=== PATIENT | male | born 1930 | race Hispanic/Latino ===

== ENCOUNTER 2018-02-08 23:26 | Inpatient (IN) | payer OTHER ==
[~2018-02-08] VITALS: Ht 167.6 cm; Wt 81.7 kg
[2018-02-09 00:04] LABS: BASOPHILS % (AUTO) 0.3 % (0.0-5.0); EOSINOPHILS % (AUTO) 0.8 % (0.0-8.0); HEMATOCRIT 43.3 % (42-54); LYMPHOCYTES % (AUTO) 4.9 % (21.0-51.0); MEAN CORPUSCULAR HEMOGLOBIN 32.9 pg (27.0-33.0); MEAN CORPUSCULAR HGB CONC 34.4 g/dL (32.0-36.0); MEAN CORPUSCULAR VOLUME 95.7 fL (79-99); MONOCYTES % (AUTO) 4.1 % (3.0-13.0); NEUTROPHILS % (AUTO) 89.9 % (40.0-77.0); PLATELET COUNT (AUTO) 76 K/uL (130-400); RED BLOOD CELL COUNT(AUTO) 4.53 MIL/uL (4.50-6.20); RED CELL DISTRIBUTION WIDTH 14.4 % (11.0-15.5); WHITE BLOOD COUNT (AUTO) 15.6 K/uL (4.8-10.8)
[2018-02-09 00:05] LABS: APPEARANCE,URINE Clear (CLEAR); BILIRUBIN,URINE Negative (NEGATIVE); COLOR,URINE Dark Yellow (YELLOW); GLUCOSE, URINE (UA) Negative (NEGATIVE); KETONES,URINE Negative (NEGATIVE); LEUKOCYTE ESTERASE ,URINE Negative (NEGATIVE); NITRATE,URINE Negative (NEGATIVE); OCCULT BLOOD,URINE Negative (NEGATIVE); PROTEIN,URINE POS 1+ (NEGATIVE)
[2018-02-09] MEDS ORDERED: ONDANSETRON HCL 4 MG/2 ML VIAL ONE (00:07)
[2018-02-09] MEDS ORDERED: SODIUM CHLORIDE 0.9% 1000ML 1,000 ML IV ONE (00:07)
[2018-02-09] MEDS ORDERED: KETOROLAC TROMETHAMINE 30MG/ML ONE (00:08)
[2018-02-09 00:15] LABS: CREATININE 1.4 mg/dL (0.5-1.5); POTASSIUM 3.3 mmol/L (3.5-5.1)
[2018-02-09 00:19] LABS: ALBUMIN 2.8 g/dL (3.5-5.0); BILIRUBIN,TOTAL 1.1 mg/dL (0.2-1.0); TOTAL PROTEIN, SERUM 6.9 g/dL (6.0-8.3)
[2018-02-09] MEDS ORDERED: ZOSYN 3.375GM+NS 50ML 50 ML IV ONE (00:40)
[2018-02-09] MEDS ORDERED: SODIUM CHLORIDE 0.9% 100 ML IV ONE (00:41)
[2018-02-09 03:00] VITALS: BP 125/65
[2018-02-09] MEDS ORDERED: PHARMACY COMMUNICATION MISC SCH (03:45)
[2018-02-09] MEDS: SODIUM CHLORIDE 0.9% 1000ML 1,000 ML IV SCH ×2 (03:50→12:39)
[2018-02-09] MEDS: LIDOCAINE HCL-MPF 1% 2ML VIAL IVP PRN ×2 (04:02→08:52)
[2018-02-09] MEDS: POTASSIUM CHLORIDE 20MEQ/100ML 100 ML IV PRN ×2 (04:02→08:49)
[2018-02-09] MEDS: ZOSYN 3.375GM+NS 50ML 50 ML IV SCH ×3 (05:03→21:00)
[2018-02-09] MEDS ORDERED: PNEUMOCOCCAL VACCINE POLYVALENT 0.5 ML/VIAL [PPV] IM ONE (07:15)
[2018-02-09] MEDS ORDERED: PNEUMOCOCCAL VACCINE POLYVALENT 0.5 ML/VIAL [PPV] IM SCH (07:15)
[2018-02-09 08:00] VITALS: BP 133/65
[2018-02-09] MEDS: NEOMY SULF/BACITRAC ZN/POLY OINT 30GM TUBE TP SCH ×2 (08:45→21:00)
[2018-02-09] MEDS: FAMOTIDINE/PF 20 MG/2 ML VIAL IV SCH ×2 (08:45→21:00)
[2018-02-09] MEDS ORDERED: ENOXAPARIN SODIUM 30 MG/0.3 ML SQ SCH (09:00)
[2018-02-09 12:00] VITALS: BP 121/59
[2018-02-09 12:41] LABS: INR 1.04 (0.85-1.15); PARTIAL THROMBOPLASTIN TIME 39.9 SEC (26.3-35.5); PROTHROMBIN TIME 10.9 SEC (9.6-11.6)
[2018-02-09 13:29] LABS: ALBUMIN 2.2 g/dL (3.5-5.0); BILIRUBIN,TOTAL 0.9 mg/dL (0.2-1.0); POTASSIUM 3.9 mmol/L (3.5-5.1); TOTAL PROTEIN, SERUM 4.7 g/dL (6.0-8.3)
[2018-02-09 16:00] VITALS: BP 143/71
[2018-02-09 20:20] VITALS: BP 138/70
[2018-02-09 23:57] VITALS: BP 103/60
[2018-02-10] MEDS: SODIUM CHLORIDE 0.9% 1000ML 1,000 ML IV SCH ×3 (03:04→18:26)
[2018-02-10 03:53] VITALS: BP 147/79
[2018-02-10] MEDS: ZOSYN 3.375GM+NS 50ML 50 ML IV SCH ×3 (05:02→20:33)
[2018-02-10 05:15] LABS: HEMATOCRIT 36.2 % (42-54); MEAN CORPUSCULAR HGB CONC 34.4 g/dL (32.0-36.0); MEAN CORPUSCULAR VOLUME 95.9 fL (79-99); PLATELET COUNT (AUTO) 59 K/uL (130-400); RED BLOOD CELL COUNT(AUTO) 3.78 MIL/uL (4.50-6.20); RED CELL DISTRIBUTION WIDTH 14.1 % (11.0-15.5)
[2018-02-10 08:00] VITALS: BP 133/72
[2018-02-10 08:13] LABS: BASOPHILS % (AUTO) 0.4 % (0.0-5.0); EOSINOPHILS % (AUTO) 0.7 % (0.0-8.0); HEMATOCRIT 40.2 % (42-54); MEAN CORPUSCULAR HEMOGLOBIN 32.7 pg (27.0-33.0); MEAN CORPUSCULAR HGB CONC 34.2 g/dL (32.0-36.0); MEAN CORPUSCULAR VOLUME 95.5 fL (79-99); MONOCYTES % (AUTO) 5.9 % (3.0-13.0); PLATELET COUNT (AUTO) 61 K/uL (130-400); RED BLOOD CELL COUNT(AUTO) 4.21 MIL/uL (4.50-6.20); RED CELL DISTRIBUTION WIDTH 14.2 % (11.0-15.5); WHITE BLOOD COUNT (AUTO) 9.9 K/uL (4.8-10.8)
[2018-02-10] MEDS: FAMOTIDINE/PF 20 MG/2 ML VIAL IV SCH ×2 (08:18→20:33)
[2018-02-10] MEDS: NEOMY SULF/BACITRAC ZN/POLY OINT 30GM TUBE TP SCH ×2 (08:18→20:34)
[2018-02-10] MEDS ORDERED: MAGNESIUM CITRATE 296 ML SOLUTION PO SCH (11:45)
[2018-02-10 12:00] VITALS: BP 136/79
[2018-02-10 16:00] VITALS: BP 134/65
[2018-02-10] MEDS ORDERED: DiphenhydrAMINE HCL 50 MG/ML VIAL IV SCH (18:45)
[2018-02-10] MEDS ORDERED: METHYLPREDNISOLONE SOD SUCC 125MG/2ML VIAL IVP SCH (18:45)
[2018-02-10] MEDS ORDERED: ACETAMINOPHEN EXTRA STRENGTH 500 MG TABLET PO SCH (18:45)
[2018-02-10] MEDS ORDERED: DiphenhydrAMINE HCL 50 MG/ML VIAL ONE (18:46)
[2018-02-10] MEDS ORDERED: METHYLPREDNISOLONE SOD SUCC 125MG/2ML VIAL ONE (18:46)
[2018-02-10 19:00] VITALS: BP 159/87
[2018-02-10] MEDS ORDERED: FUROSEMIDE 10 MG/ML 4ML VIAL IV SCH ×2 (19:00→19:15)
[2018-02-10] MEDS ORDERED: FUROSEMIDE 10 MG/ML 4ML VIAL ONE (19:08)
[2018-02-10 19:09] LABS: ABG BASE EXCESS -3.2 mmol/L (-2.0-3.0); ABG HCO3 21.2 mmol/L (21.0-28.0); ABG OXYGEN SATURATION 98.7 % (95.0-99.0); ABG PCO2 36 mmHg (35-48)
[2018-02-10 19:40] LABS: EOSINOPHILS % (AUTO) 0.7 % (0.0-8.0); LYMPHOCYTES % (AUTO) 4.2 % (21.0-51.0); MEAN CORPUSCULAR HEMOGLOBIN 33.2 pg (27.0-33.0); MEAN CORPUSCULAR HGB CONC 34.8 g/dL (32.0-36.0); MEAN CORPUSCULAR VOLUME 95.4 fL (79-99); MONOCYTES % (AUTO) 1.4 % (3.0-13.0); NEUTROPHILS % (AUTO) 93.7 % (40.0-77.0); NUCLEATED RED BLOOD CELLS 0.1 % (0.0-0.19); PLATELET COUNT (AUTO) 118 K/uL (130-400); RED BLOOD CELL COUNT(AUTO) 4.51 MIL/uL (4.50-6.20); RED CELL DISTRIBUTION WIDTH 14.2 % (11.0-15.5); WHITE BLOOD COUNT (AUTO) 5.1 K/uL (4.8-10.8)
[2018-02-10 20:01] LABS: CREATININE 1.1 mg/dL (0.5-1.5); PARTIAL THROMBOPLASTIN TIME 29.5 SEC (26.3-35.5); POTASSIUM 3.4 mmol/L (3.5-5.1); PROTHROMBIN TIME 10.5 SEC (9.6-11.6)
[2018-02-10] MEDS ORDERED: VANCOMYCIN PROTOCOL PER PHARMACY IV SCH (21:15)
[2018-02-10 23:45] VITALS: BP 108/56
[2018-02-11] VITALS (13 sets, daily range): BP systolic 106–134; BP diastolic 54–76
[2018-02-11] MEDS ORDERED: VANCOMYCIN 1.5 GM in SODIUM CHLORIDE 0.9% 250 ML IV SCH ×2
[2018-02-11] MEDS ORDERED: VANCOMYCIN 1GM+NS 250ML 500 ML IV ONE (01:25)
[2018-02-11] MEDS: SODIUM CHLORIDE 0.9% 1000ML 1,000 ML IV SCH ×3 (04:24→21:49)
[2018-02-11 04:29] LABS: APPEARANCE,URINE CLEAR (CLEAR); BILIRUBIN,URINE NEGATIVE (NEGATIVE); COLOR,URINE YELLOW (YELLOW); GLUCOSE, URINE (UA) NEGATIVE (NEGATIVE); KETONES,URINE NEGATIVE (NEGATIVE); LEUKOCYTE ESTERASE ,URINE NEGATIVE (NEGATIVE); NITRATE,URINE NEGATIVE (NEGATIVE); OCCULT BLOOD,URINE TRACE-INTACT (NEGATIVE); PROTEIN,URINE NEGATIVE (NEGATIVE); UROBILINOGEN,URINE 0.2 mg/dL (0.2-1.0)
[2018-02-11 04:37] LABS: BACTERIA,URINE None Seen /HPF (None Seen); WBC,URINE 0-1 /HPF (0-1)
[2018-02-11] MEDS: ZOSYN 3.375GM+NS 50ML 50 ML IV SCH ×3 (05:33→23:34)
[2018-02-11 05:40] LABS: BASOPHILS % (AUTO) 0.1 % (0.0-5.0); MEAN CORPUSCULAR HEMOGLOBIN 32.5 pg (27.0-33.0); MEAN CORPUSCULAR HGB CONC 34.2 g/dL (32.0-36.0); MEAN CORPUSCULAR VOLUME 95.1 fL (79-99); MONOCYTES % (AUTO) 2.3 % (3.0-13.0); NEUTROPHILS % (AUTO) 91.6 % (40.0-77.0); PLATELET COUNT (AUTO) 87 K/uL (130-400); RED CELL DISTRIBUTION WIDTH 14.3 % (11.0-15.5); WHITE BLOOD COUNT (AUTO) 10.2 K/uL (4.8-10.8)
[2018-02-11 05:42] LABS: CREATININE 1.1 mg/dL (0.5-1.5); POTASSIUM 3.4 mmol/L (3.5-5.1)
[2018-02-11] MEDS: NEOMY SULF/BACITRAC ZN/POLY OINT 30GM TUBE TP SCH ×2 (09:00→23:44)
[2018-02-11] MEDS: FAMOTIDINE/PF 20 MG/2 ML VIAL IV SCH ×2 (09:11→21:50)
[2018-02-11] MEDS ORDERED: FENTANYL CITRATE PF 50 MCG/1 ML 2ML VIAL ONE (15:15)
[2018-02-11] MEDS ORDERED: MIDAZOLAM HCL 1 MG/ML 2ML VIAL ONE (15:15)
[2018-02-11] MEDS: IPRATROPIUM 0.5 MG/2.5 ML INH IH SCH ×2 (18:08→23:11)
[2018-02-11] MEDS: FUROSEMIDE 10 MG/ML 2ML VIAL IV SCH (18:25)
[2018-02-11] MEDS: POTASSIUM CHLORIDE 20MEQ/100ML 100 ML IV PRN (18:27)
[2018-02-11] MEDS: LIDOCAINE HCL-MPF 1% 2ML VIAL IVP PRN (18:27)
[2018-02-11] MEDS: VANCOMYCIN 1GM+NS 250ML 250 ML IV SCH (21:51)
[2018-02-12 03:00] VITALS: BP 148/68
[2018-02-12 03:48] LABS: ABG BASE EXCESS 2.6 mmol/L (-2.0-3.0); ABG OXYGEN SATURATION 97.8 % (95.0-99.0); ABG PCO2 41 mmHg (35-48)
[2018-02-12 04:31] LABS: BASOPHILS % (AUTO) 0.2 % (0.0-5.0); EOSINOPHILS % (AUTO) 0.7 % (0.0-8.0); HEMATOCRIT 35.1 % (42-54); LYMPHOCYTES % (AUTO) 11.6 % (21.0-51.0); MEAN CORPUSCULAR HGB CONC 35.1 g/dL (32.0-36.0); MEAN CORPUSCULAR VOLUME 93.9 fL (79-99); MONOCYTES % (AUTO) 8.7 % (3.0-13.0); NEUTROPHILS % (AUTO) 78.8 % (40.0-77.0); NUCLEATED RED BLOOD CELLS 0.1 % (0.0-0.19); PLATELET COUNT (AUTO) 104 K/uL (130-400); RED BLOOD CELL COUNT(AUTO) 3.74 MIL/uL (4.50-6.20); RED CELL DISTRIBUTION WIDTH 14.3 % (11.0-15.5); WHITE BLOOD COUNT (AUTO) 7.9 K/uL (4.8-10.8)
[2018-02-12 04:47] LABS: INR 1.09 (0.85-1.15); PARTIAL THROMBOPLASTIN TIME 29.6 SEC (26.3-35.5); PROTHROMBIN TIME 11.4 SEC (9.6-11.6)
[2018-02-12 05:01] LABS: ALBUMIN 1.9 g/dL (3.5-5.0); BILIRUBIN,TOTAL 1.2 mg/dL (0.2-1.0); MAGNESIUM 1.8 mg/dL (1.80-2.40); PHOSPHORUS 2.8 mg/dL (2.5-4.9); POTASSIUM 3.4 mmol/L (3.5-5.1); TOTAL PROTEIN, SERUM 5.1 g/dL (6.0-8.3)
[2018-02-12] MEDS: ZOSYN 3.375GM+NS 50ML 50 ML IV SCH ×3 (05:05→21:24)
[2018-02-12] MEDS: FUROSEMIDE 10 MG/ML 2ML VIAL IV SCH ×2 (05:05→14:09)
[2018-02-12] MEDS: IPRATROPIUM 0.5 MG/2.5 ML INH IH SCH ×4 (06:12→23:08)
[2018-02-12] MEDS: MAGNESIUM 2GM PREMIX 50ML 50 ML IV PRN (06:36)
[2018-02-12 07:00] VITALS: BP 131/69
[2018-02-12] MEDS: FOLIC ACID 1 MG TABLET PO SCH (09:56)
[2018-02-12] MEDS: CYANOCOBALAMIN (VITAMIN B-12) 1,000 MCG TABLET PO SCH (09:56)
[2018-02-12] MEDS: NEOMY SULF/BACITRAC ZN/POLY OINT 30GM TUBE TP SCH ×2 (09:56→21:56)
[2018-02-12] MEDS: FAMOTIDINE/PF 20 MG/2 ML VIAL IV SCH ×2 (09:56→21:24)
[2018-02-12] MEDS: SODIUM CHLORIDE 0.9% 1000ML 1,000 ML IV SCH (09:57)
[2018-02-12 11:06] VITALS: BP 131/62
[2018-02-12] MEDS ORDERED: MAGNESIUM 2GM PREMIX 50ML 50 ML IV SCH (13:30)
[2018-02-12 15:50] VITALS: BP 126/60
[2018-02-12] MEDS: POTASSIUM CHLORIDE 20MEQ/100ML 100 ML IV PRN (17:02)
[2018-02-12] MEDS: LIDOCAINE HCL-MPF 1% 2ML VIAL IVP PRN (17:02)
[2018-02-12] MEDS ORDERED: MAGNESIUM CITRATE 296 ML SOLUTION PO SCH (18:00)
[2018-02-12 19:23] VITALS: BP 133/71
[2018-02-12] MEDS: VANCOMYCIN 1GM+NS 250ML 250 ML IV SCH (21:24)
[2018-02-13] VITALS (29 sets, daily range): BP systolic 76–137; BP diastolic 22–83
[2018-02-13] MEDS: SODIUM CHLORIDE 0.9% 1000ML 1,000 ML IV SCH ×2 (04:21→06:24)
[2018-02-13 04:30] LABS: BASOPHILS % (AUTO) 0.6 % (0.0-5.0); HEMATOCRIT 40.5 % (42-54); LYMPHOCYTES % (AUTO) 12.5 % (21.0-51.0); MEAN CORPUSCULAR HEMOGLOBIN 31.9 pg (27.0-33.0); MEAN CORPUSCULAR VOLUME 93.8 fL (79-99); MONOCYTES % (AUTO) 6.1 % (3.0-13.0); NEUTROPHILS % (AUTO) 79.8 % (40.0-77.0); PLATELET COUNT (AUTO) 97 K/uL (130-400); RED BLOOD CELL COUNT(AUTO) 4.32 MIL/uL (4.50-6.20); RED CELL DISTRIBUTION WIDTH 14.2 % (11.0-15.5); WHITE BLOOD COUNT (AUTO) 6.9 K/uL (4.8-10.8)
[2018-02-13 04:39] LABS: INR 1.11 (0.85-1.15); PARTIAL THROMBOPLASTIN TIME 31.6 SEC (26.3-35.5); PROTHROMBIN TIME 11.6 SEC (9.6-11.6)
[2018-02-13] MEDS ORDERED: SODIUM CHLORIDE 0.9% 50 ML IV ONE (04:39)
[2018-02-13 04:42] LABS: BILIRUBIN,TOTAL 1.7 mg/dL (0.2-1.0); CREATININE 0.8 mg/dL (0.5-1.5); MAGNESIUM 1.9 mg/dL (1.80-2.40); PHOSPHORUS 2.9 mg/dL (2.5-4.9); POTASSIUM 3.1 mmol/L (3.5-5.1); TOTAL PROTEIN, SERUM 5.6 g/dL (6.0-8.3)
[2018-02-13] MEDS: ZOSYN 3.375GM+NS 50ML 50 ML IV SCH ×3 (05:06→23:24)
[2018-02-13] MEDS: FUROSEMIDE 10 MG/ML 2ML VIAL IV SCH ×2 (05:08→21:22)
[2018-02-13] MEDS: IPRATROPIUM 0.5 MG/2.5 ML INH IH SCH ×3 (06:22→23:23)
[2018-02-13] MEDS: FOLIC ACID 1 MG TABLET PO SCH (09:00)
[2018-02-13] MEDS: NEOMY SULF/BACITRAC ZN/POLY OINT 30GM TUBE TP SCH ×2 (09:00→22:17)
[2018-02-13] MEDS: CYANOCOBALAMIN (VITAMIN B-12) 1,000 MCG TABLET PO SCH (09:00)
[2018-02-13] MEDS: FAMOTIDINE/PF 20 MG/2 ML VIAL IV SCH ×2 (09:00→21:18)
[2018-02-13] MEDS ORDERED: LACTATED RINGERS 1000ML 1,000 ML IV ONE (09:34)
[2018-02-13] MEDS ORDERED: BUPIVACAINE/PF 0.25% 30ML VIAL IJ ONE (09:44)
[2018-02-13] MEDS ORDERED: LIDOCAINE HCL 1% 20 ML VIAL ONE (09:45)
[2018-02-13] MEDS ORDERED: POTASSIUM CHLORIDE 20MEQ/100ML 100 ML IV ONE ×2 (09:49→10:57)
[2018-02-13] MEDS: POTASSIUM CHLORIDE 20MEQ/100ML 100 ML IV PRN (09:58)
[2018-02-13] MEDS ORDERED: LIDOCAINE PF 2% 5ML ABBOJECT ONE (09:59)
[2018-02-13] MEDS ORDERED: SUCCINYLCHOLINE 200MG/10ML SYR ONE (09:59)
[2018-02-13] MEDS ORDERED: ONDANSETRON HCL 4 MG/2 ML VIAL ONE ×2 (09:59→11:25)
[2018-02-13] MEDS ORDERED: ROCURONIUM 10MG/1ML SYR 10 MG/ML ML ONE (10:00)
[2018-02-13] MEDS ORDERED: FENTANYL CITRATE PF 50 MCG/1 ML 2ML VIAL ONE ×2 (10:00→12:18)
[2018-02-13] MEDS ORDERED: PROPOFOL 10 MG/ML 20ML VIAL IV ONE (10:00)
[2018-02-13] MEDS ORDERED: ESMOLOL HCL 10 MG/ML 10 ML VIAL ONE (10:32)
[2018-02-13] MEDS ORDERED: BACITRACIN 50,000 UNIT VIAL ONE (10:45)
[2018-02-13] MEDS ORDERED: GLYCOPYRROLATE 1 MG/5 ML SYRINGE ONE (11:25)
[2018-02-13] MEDS ORDERED: NEOSTIGMINE 5MG/5ML SYR IV ONE (11:25)
[2018-02-13] MEDS ORDERED: DEXAMETHASONE SOD PHOSPHATE 10MG/ML 1ML VIAL ONE (11:25)
[2018-02-13] MEDS ORDERED: PHENYLEPHRINE HCL 10 MG/ML 1ML VIAL IV ONE ×3 (11:38→14:48)
[2018-02-13] MEDS: LIDOCAINE HCL-MPF 1% 2ML VIAL IVP PRN (11:54)
[2018-02-13 12:55] LABS: HEMATOCRIT 32.3 % (42-54); MEAN CORPUSCULAR HGB CONC 33.7 g/dL (32.0-36.0); MEAN CORPUSCULAR VOLUME 94.7 fL (79-99); PLATELET COUNT (AUTO) 128 K/uL (130-400); RED BLOOD CELL COUNT(AUTO) 3.41 MIL/uL (4.50-6.20); WHITE BLOOD COUNT (AUTO) 18.2 K/uL (4.8-10.8)
[2018-02-13] MEDS ORDERED: MEPERIDINE-PF 25 MG/ML SYG ONE ×2 (12:56→13:43)
[2018-02-13] MEDS: ONDANSETRON HCL 4 MG/2 ML VIAL IV PRN ×2 (13:46→23:24)
[2018-02-13] MEDS ORDERED: PROMETHAZINE HCL 25 MG/ML 1ML AMPULE IM ONE (13:48)
[2018-02-13 14:15] LABS: BASOPHILS % (AUTO) 0.2 % (0.0-5.0); EOSINOPHILS % (AUTO) 0.3 % (0.0-8.0); LYMPHOCYTES % (AUTO) 6.9 % (21.0-51.0); MEAN CORPUSCULAR HEMOGLOBIN 31.8 pg (27.0-33.0); MEAN CORPUSCULAR HGB CONC 33.4 g/dL (32.0-36.0); MEAN CORPUSCULAR VOLUME 95.2 fL (79-99); MONOCYTES % (AUTO) 3.9 % (3.0-13.0); NEUTROPHILS % (AUTO) 88.7 % (40.0-77.0); PLATELET COUNT (AUTO) 110 K/uL (130-400); RED BLOOD CELL COUNT(AUTO) 2.63 MIL/uL (4.50-6.20); WHITE BLOOD COUNT (AUTO) 15.8 K/uL (4.8-10.8)
[2018-02-13] MEDS ORDERED: AMINOCAPROIC ACID 250 MG/ML 20 ML VIAL IV ONE (14:31)
[2018-02-13] MEDS ORDERED: FUROSEMIDE 10 MG/ML 4ML VIAL ONE (15:15)
[2018-02-13] MEDS: MORPHINE SULFATE 2 MG/ML 1ML SYG IVP PRN ×3 (16:57→23:26)
[2018-02-13] MEDS: LACTATED RINGERS 1000ML 1,000 ML IV SCH (17:00)
[2018-02-13] MEDS ORDERED: ONDANSETRON HCL MDV 20ML 2 MG/ML VIAL ONE (17:18)
[2018-02-13] MEDS ORDERED: MAGNESIUM CITRATE 296 ML SOLUTION PO SCH (17:45)
[2018-02-13 20:19] LABS: HEMATOCRIT 38.7 % (42-54)
[2018-02-13] MEDS: VANCOMYCIN 1GM+NS 250ML 250 ML IV SCH (21:18)
[2018-02-14] VITALS (11 sets, daily range): BP systolic 107–146; BP diastolic 46–87
[2018-02-14] MEDS: LACTATED RINGERS 1000ML 1,000 ML IV SCH ×3 (00:45→22:31)
[2018-02-14 05:03] LABS: BASOPHILS % (AUTO) 0.2 % (0.0-5.0); HEMATOCRIT 35.1 % (42-54); LYMPHOCYTES % (AUTO) 5.9 % (21.0-51.0); MEAN CORPUSCULAR HEMOGLOBIN 31.9 pg (27.0-33.0); MEAN CORPUSCULAR HGB CONC 34.7 g/dL (32.0-36.0); MEAN CORPUSCULAR VOLUME 91.9 fL (79-99); MONOCYTES % (AUTO) 4.7 % (3.0-13.0); NEUTROPHILS % (AUTO) 89.2 % (40.0-77.0); PLATELET COUNT (AUTO) 131 K/uL (130-400); RED BLOOD CELL COUNT(AUTO) 3.82 MIL/uL (4.50-6.20); RED CELL DISTRIBUTION WIDTH 15.9 % (11.0-15.5); WHITE BLOOD COUNT (AUTO) 16.1 K/uL (4.8-10.8)
[2018-02-14] MEDS: MORPHINE SULFATE 2 MG/ML 1ML SYG IVP PRN (05:07)
[2018-02-14 05:11] LABS: CREATININE 1.7 mg/dL (0.5-1.5); POTASSIUM 4.2 mmol/L (3.5-5.1)
[2018-02-14] MEDS: FUROSEMIDE 10 MG/ML 2ML VIAL IV SCH ×2 (06:42→17:33)
[2018-02-14] MEDS ORDERED: SODIUM CHLORIDE 0.9% 250 ML IV ONE (06:53)
[2018-02-14] MEDS: IPRATROPIUM 0.5 MG/2.5 ML INH IH SCH ×3 (07:06→18:59)
[2018-02-14] MEDS: ZOSYN 3.375GM+NS 50ML 50 ML IV SCH ×2 (08:36→17:05)
[2018-02-14] MEDS: FAMOTIDINE/PF 20 MG/2 ML VIAL IV SCH ×2 (08:38→22:31)
[2018-02-14] MEDS: FOLIC ACID 1 MG TABLET PO SCH (08:42)
[2018-02-14] MEDS: CYANOCOBALAMIN (VITAMIN B-12) 1,000 MCG TABLET PO SCH (08:45)
[2018-02-14] MEDS: NEOMY SULF/BACITRAC ZN/POLY OINT 30GM TUBE TP SCH ×2 (09:00→22:31)
[2018-02-14] MEDS: ONDANSETRON HCL 4 MG/2 ML VIAL IV PRN (14:29)
[2018-02-14] MEDS: VANCOMYCIN 1GM+NS 250ML 250 ML IV SCH (22:31)
[2018-02-15] VITALS: BP 127/61
[2018-02-15] MEDS: IPRATROPIUM 0.5 MG/2.5 ML INH IH SCH ×5 (00:51→23:51)
[2018-02-15] MEDS: ZOSYN 3.375GM+NS 50ML 50 ML IV SCH ×3 (02:37→17:28)
[2018-02-15 04:00] VITALS: BP 134/68
[2018-02-15 04:41] LABS: HEMATOCRIT 24.7 % (42-54); MEAN CORPUSCULAR HEMOGLOBIN 31.4 pg (27.0-33.0); MEAN CORPUSCULAR HGB CONC 34.5 g/dL (32.0-36.0); MEAN CORPUSCULAR VOLUME 91.3 fL (79-99); PLATELET COUNT (AUTO) 73 K/uL (130-400); RED CELL DISTRIBUTION WIDTH 15.3 % (11.0-15.5)
[2018-02-15 04:43] LABS: CREATININE 1.4 mg/dL (0.5-1.5); POTASSIUM 3.4 mmol/L (3.5-5.1)
[2018-02-15] MEDS: FUROSEMIDE 10 MG/ML 2ML VIAL IV SCH ×2 (07:04→17:29)
[2018-02-15 07:30] VITALS: BP 110/56
[2018-02-15] MEDS ORDERED: METOCLOPRAMIDE 5 MG TABLET PO SCH (07:30)
[2018-02-15] MEDS: NEOMY SULF/BACITRAC ZN/POLY OINT 30GM TUBE TP SCH ×2 (09:00→22:04)
[2018-02-15] MEDS: FOLIC ACID 1 MG TABLET PO SCH (10:47)
[2018-02-15] MEDS: CYANOCOBALAMIN (VITAMIN B-12) 1,000 MCG TABLET PO SCH (10:47)
[2018-02-15] MEDS: FAMOTIDINE/PF 20 MG/2 ML VIAL IV SCH ×2 (10:47→22:02)
[2018-02-15] MEDS: LACTATED RINGERS 1000ML 1,000 ML IV SCH ×2 (10:47→22:03)
[2018-02-15 11:00] VITALS: BP 128/73
[2018-02-15] MEDS: VANCOMYCIN 500MG+NS 100ML 100 ML IV SCH ×2 (12:35→22:03)
[2018-02-15 15:56] LABS: HEMATOCRIT 25.5 % (42-54)
[2018-02-15 16:00] VITALS: BP 120/69
[2018-02-15 20:00] VITALS: BP 114/62
[2018-02-15] MEDS ORDERED: METOCLOPRAMIDE 10 MG/2 ML VIAL IVP SCH (21:00)
[2018-02-16] VITALS: BP 108/46
[2018-02-16] MEDS: ZOSYN 3.375GM+NS 50ML 50 ML IV SCH ×4 (01:42→23:53)
[2018-02-16 04:00] VITALS: BP 117/59
[2018-02-16] MEDS: LACTATED RINGERS 1000ML 1,000 ML IV SCH (05:00)
[2018-02-16] MEDS: FUROSEMIDE 10 MG/ML 2ML VIAL IV SCH ×2 (05:31→16:48)
[2018-02-16 05:37] LABS: BASOPHILS % (AUTO) 0.3 % (0.0-5.0); EOSINOPHILS % (AUTO) 0.2 % (0.0-8.0); LYMPHOCYTES % (AUTO) 5.3 % (21.0-51.0); MEAN CORPUSCULAR HEMOGLOBIN 31.8 pg (27.0-33.0); MEAN CORPUSCULAR HGB CONC 34.6 g/dL (32.0-36.0); MONOCYTES % (AUTO) 3.9 % (3.0-13.0); NEUTROPHILS % (AUTO) 90.3 % (40.0-77.0); PLATELET COUNT (AUTO) 86 K/uL (130-400); RED BLOOD CELL COUNT(AUTO) 2.39 MIL/uL (4.50-6.20); RED CELL DISTRIBUTION WIDTH 14.8 % (11.0-15.5); WHITE BLOOD COUNT (AUTO) 12.3 K/uL (4.8-10.8)
[2018-02-16 05:50] LABS: CREATININE 0.9 mg/dL (0.5-1.5)
[2018-02-16 05:52] LABS: POTASSIUM 2.9 mmol/L (3.5-5.1)
[2018-02-16] MEDS: IPRATROPIUM 0.5 MG/2.5 ML INH IH SCH ×3 (06:42→18:31)
[2018-02-16 07:30] VITALS: BP 131/60
[2018-02-16] MEDS ORDERED: LIDOCAINE HCL MPF 1% 5ML VIAL ONE (09:11)
[2018-02-16] MEDS: VANCOMYCIN 500MG+NS 100ML 100 ML IV SCH ×2 (09:26→22:33)
[2018-02-16] MEDS: FAMOTIDINE/PF 20 MG/2 ML VIAL IV SCH ×2 (09:34→20:45)
[2018-02-16] MEDS: CYANOCOBALAMIN (VITAMIN B-12) 1,000 MCG TABLET PO SCH (09:35)
[2018-02-16] MEDS: FOLIC ACID 1 MG TABLET PO SCH (09:35)
[2018-02-16] MEDS: NEOMY SULF/BACITRAC ZN/POLY OINT 30GM TUBE TP SCH ×2 (09:36→20:56)
[2018-02-16] MEDS: POTASSIUM CHLORIDE 20MEQ/100ML 100 ML IV SCH (10:33)
[2018-02-16 11:00] VITALS: BP 94/58
[2018-02-16] MEDS: KETOROLAC TROMETHAMINE 15MG/ML IV PRN ×2 (11:14→16:47)
[2018-02-16] MEDS: METOCLOPRAMIDE 10 MG/2 ML VIAL IVP SCH ×2 (13:15→20:45)
[2018-02-16 16:00] VITALS: BP 117/59
[2018-02-16 20:12] VITALS: BP 123/58
[2018-02-17] MEDS: IPRATROPIUM 0.5 MG/2.5 ML INH IH SCH ×4 (00:06→18:17)
[2018-02-17 00:13] VITALS: BP 130/68
[2018-02-17 04:00] VITALS: BP 117/79
[2018-02-17 05:17] LABS: BASOPHILS % (AUTO) 0.2 % (0.0-5.0); EOSINOPHILS % (AUTO) 1.4 % (0.0-8.0); HEMATOCRIT 21.6 % (42-54); LYMPHOCYTES % (AUTO) 7.8 % (21.0-51.0); MEAN CORPUSCULAR HEMOGLOBIN 32.2 pg (27.0-33.0); MEAN CORPUSCULAR HGB CONC 34.7 g/dL (32.0-36.0); MEAN CORPUSCULAR VOLUME 92.6 fL (79-99); MONOCYTES % (AUTO) 7.2 % (3.0-13.0); NEUTROPHILS % (AUTO) 83.4 % (40.0-77.0); PLATELET COUNT (AUTO) 77 K/uL (130-400); RED BLOOD CELL COUNT(AUTO) 2.34 MIL/uL (4.50-6.20); RED CELL DISTRIBUTION WIDTH 14.7 % (11.0-15.5); WHITE BLOOD COUNT (AUTO) 8.5 K/uL (4.8-10.8)
[2018-02-17 05:23] LABS: CREATININE 0.8 mg/dL (0.5-1.5); POTASSIUM 3.1 mmol/L (3.5-5.1)
[2018-02-17] MEDS: FUROSEMIDE 10 MG/ML 2ML VIAL IV SCH ×2 (06:03→20:41)
[2018-02-17 07:00] VITALS: BP 136/66
[2018-02-17] MEDS: CYANOCOBALAMIN (VITAMIN B-12) 1,000 MCG TABLET PO SCH (10:08)
[2018-02-17] MEDS: METOCLOPRAMIDE 10 MG/2 ML VIAL IVP SCH ×3 (10:08→20:42)
[2018-02-17] MEDS: FAMOTIDINE/PF 20 MG/2 ML VIAL IV SCH ×2 (10:08→20:41)
[2018-02-17] MEDS: ZOSYN 3.375GM+NS 50ML 50 ML IV SCH ×2 (10:09→16:00)
[2018-02-17] MEDS: FOLIC ACID 1 MG TABLET PO SCH (10:09)
[2018-02-17] MEDS: NEOMY SULF/BACITRAC ZN/POLY OINT 30GM TUBE TP SCH ×2 (10:09→21:08)
[2018-02-17 11:00] VITALS: BP 100/58
[2018-02-17] MEDS ORDERED: LIDOCAINE HCL MPF 1% 5ML VIAL ONE (12:18)
[2018-02-17] MEDS: POTASSIUM CHLORIDE 20MEQ/100ML 100 ML IV SCH (12:22)
[2018-02-17] MEDS ORDERED: ACETAMINOPHEN 325 MG TAB PO SCH (12:45)
[2018-02-17] MEDS ORDERED: DIPHENHYDRAMINE HCL 25 MG CAPSULE PO SCH (12:45)
[2018-02-17 16:00] VITALS: BP 117/61
[2018-02-17] MEDS ORDERED: DiphenhydrAMINE HCL 50 MG/ML VIAL ONE (16:15)
[2018-02-17] MEDS: VANCOMYCIN 500MG+NS 100ML 100 ML IV SCH ×2 (16:35→23:13)
[2018-02-17 20:00] VITALS: BP 98/58
[2018-02-18] VITALS: BP 117/57
[2018-02-18] MEDS: IPRATROPIUM 0.5 MG/2.5 ML INH IH SCH ×4 (00:28→23:32)
[2018-02-18] MEDS: ZOSYN 3.375GM+NS 50ML 50 ML IV SCH ×3 (01:15→16:04)
[2018-02-18 04:00] VITALS: BP 124/66
[2018-02-18 06:03] LABS: BASOPHILS % (AUTO) 0.4 % (0.0-5.0); EOSINOPHILS % (AUTO) 2.3 % (0.0-8.0); HEMATOCRIT 28.5 % (42-54); LYMPHOCYTES % (AUTO) 7.2 % (21.0-51.0); MEAN CORPUSCULAR HEMOGLOBIN 32.3 pg (27.0-33.0); MEAN CORPUSCULAR HGB CONC 35.1 g/dL (32.0-36.0); MEAN CORPUSCULAR VOLUME 92.1 fL (79-99); MONOCYTES % (AUTO) 8.3 % (3.0-13.0); NEUTROPHILS % (AUTO) 81.8 % (40.0-77.0); PLATELET COUNT (AUTO) 110 K/uL (130-400); RED BLOOD CELL COUNT(AUTO) 3.09 MIL/uL (4.50-6.20); RED CELL DISTRIBUTION WIDTH 14.9 % (11.0-15.5); WHITE BLOOD COUNT (AUTO) 10.8 K/uL (4.8-10.8)
[2018-02-18 06:11] LABS: CREATININE 0.8 mg/dL (0.5-1.5); MAGNESIUM 1.8 mg/dL (1.80-2.40); POTASSIUM 3.5 mmol/L (3.5-5.1)
[2018-02-18] MEDS: VANCOMYCIN 500MG+NS 100ML 100 ML IV SCH ×3 (06:30→22:45)
[2018-02-18] MEDS: FUROSEMIDE 10 MG/ML 2ML VIAL IV SCH ×2 (06:30→19:05)
[2018-02-18 07:30] VITALS: BP 115/79
[2018-02-18] MEDS ORDERED: POTASSIUM CHLORIDE 20 MEQ ERTAB PO ONE ×2 (09:26→20:51)
[2018-02-18] MEDS: FOLIC ACID 1 MG TABLET PO SCH (09:38)
[2018-02-18] MEDS: CYANOCOBALAMIN (VITAMIN B-12) 1,000 MCG TABLET PO SCH (09:38)
[2018-02-18] MEDS: FAMOTIDINE/PF 20 MG/2 ML VIAL IV SCH ×2 (09:38→21:17)
[2018-02-18] MEDS: METOCLOPRAMIDE 10 MG/2 ML VIAL IVP SCH ×3 (09:38→21:18)
[2018-02-18 11:00] VITALS: BP 144/83
[2018-02-18] MEDS: NEOMY SULF/BACITRAC ZN/POLY OINT 30GM TUBE TP SCH ×2 (16:04→21:35)
[2018-02-18 17:26] VITALS: BP 126/69
[2018-02-18 19:58] VITALS: BP 116/71
[2018-02-19] VITALS (7 sets, daily range): BP systolic 110–146; BP diastolic 62–76
[2018-02-19] MEDS: ZOSYN 3.375GM+NS 50ML 50 ML IV SCH ×3 (00:06→18:52)
[2018-02-19 05:25] LABS: BASOPHILS % (AUTO) 0.5 % (0.0-5.0); EOSINOPHILS % (AUTO) 1.2 % (0.0-8.0); HEMATOCRIT 28.8 % (42-54); LYMPHOCYTES % (AUTO) 7.3 % (21.0-51.0); MEAN CORPUSCULAR HEMOGLOBIN 32.3 pg (27.0-33.0); MEAN CORPUSCULAR HGB CONC 34.8 g/dL (32.0-36.0); MEAN CORPUSCULAR VOLUME 92.9 fL (79-99); MONOCYTES % (AUTO) 10.1 % (3.0-13.0); NEUTROPHILS % (AUTO) 80.9 % (40.0-77.0); PLATELET COUNT (AUTO) 96 K/uL (130-400); RED CELL DISTRIBUTION WIDTH 14.5 % (11.0-15.5); WHITE BLOOD COUNT (AUTO) 10.5 K/uL (4.8-10.8)
[2018-02-19 05:37] LABS: CREATININE 0.9 mg/dL (0.5-1.5); MAGNESIUM 2.3 mg/dL (1.80-2.40); POTASSIUM 3.5 mmol/L (3.5-5.1)
[2018-02-19] MEDS: IPRATROPIUM 0.5 MG/2.5 ML INH IH SCH ×3 (06:05→23:06)
[2018-02-19] MEDS: FUROSEMIDE 10 MG/ML 2ML VIAL IV SCH ×2 (06:23→18:24)
[2018-02-19] MEDS: VANCOMYCIN 500MG+NS 100ML 100 ML IV SCH (06:23)
[2018-02-19] MEDS: CYANOCOBALAMIN (VITAMIN B-12) 1,000 MCG TABLET PO SCH (09:50)
[2018-02-19] MEDS: FAMOTIDINE/PF 20 MG/2 ML VIAL IV SCH ×2 (09:50→20:53)
[2018-02-19] MEDS: FOLIC ACID 1 MG TABLET PO SCH (09:50)
[2018-02-19] MEDS: METOCLOPRAMIDE 10 MG/2 ML VIAL IVP SCH ×3 (09:54→20:54)
[2018-02-19] MEDS ORDERED: POTASSIUM CHLORIDE 20 MEQ ERTAB PO ONE (10:05)
[2018-02-19] MEDS: NEOMY SULF/BACITRAC ZN/POLY OINT 30GM TUBE TP SCH ×2 (10:13→20:54)
[2018-02-19] MEDS ORDERED: COMPOUND IV REFRIGERATED 1 EACH IVSOLN MISC PRN (11:15)
[2018-02-19] MEDS: VANCOMYCIN 750MG + NS 250 ML IV SCH ×4 (15:51→20:53)
[2018-02-20] MEDS: ZOSYN 3.375GM+NS 50ML 50 ML IV SCH ×2 (02:20→09:59)
[2018-02-20 04:00] VITALS: BP 128/71
[2018-02-20] MEDS: VANCOMYCIN 750MG + NS 250 ML IV SCH ×2 (04:56)
[2018-02-20] MEDS: FUROSEMIDE 10 MG/ML 2ML VIAL IV SCH (04:56)
[2018-02-20] MEDS: IPRATROPIUM 0.5 MG/2.5 ML INH IH SCH (06:38)
[2018-02-20 07:00] VITALS: BP 107/66
[2018-02-20] MEDS ORDERED: IPRATROPIUM 0.5 MG/2.5 ML INH IH PRN (07:45)
[2018-02-20] MEDS: NEOMY SULF/BACITRAC ZN/POLY OINT 30GM TUBE TP SCH ×2 (09:00→22:45)
[2018-02-20] MEDS: CYANOCOBALAMIN (VITAMIN B-12) 1,000 MCG TABLET PO SCH (09:59)
[2018-02-20] MEDS: FAMOTIDINE/PF 20 MG/2 ML VIAL IV SCH ×2 (09:59→22:23)
[2018-02-20] MEDS: FOLIC ACID 1 MG TABLET PO SCH (09:59)
[2018-02-20] MEDS: METOCLOPRAMIDE 10 MG/2 ML VIAL IVP SCH ×3 (09:59→22:23)
[2018-02-20 11:00] VITALS: BP 93/58
[2018-02-20] MEDS ORDERED: SODIUM CHLORIDE 0.9% 500ML 500 ML IV SCH (11:15)
[2018-02-20] MEDS: KETOROLAC TROMETHAMINE 15MG/ML IV PRN ×2 (11:19→22:27)
[2018-02-20 11:29] LABS: BASOPHILS % (AUTO) 1.3 % (0.0-5.0); EOSINOPHILS % (AUTO) 0.4 % (0.0-8.0); HEMATOCRIT 32.9 % (42-54); LYMPHOCYTES % (AUTO) 5.8 % (21.0-51.0); MEAN CORPUSCULAR HEMOGLOBIN 32.1 pg (27.0-33.0); MEAN CORPUSCULAR HGB CONC 34.5 g/dL (32.0-36.0); MEAN CORPUSCULAR VOLUME 93.1 fL (79-99); NEUTROPHILS % (AUTO) 84.5 % (40.0-77.0); PLATELET COUNT (AUTO) 111 K/uL (130-400); RED BLOOD CELL COUNT(AUTO) 3.54 MIL/uL (4.50-6.20); RED CELL DISTRIBUTION WIDTH 14.8 % (11.0-15.5); WHITE BLOOD COUNT (AUTO) 14.5 K/uL (4.8-10.8)
[2018-02-20 11:40] LABS: POTASSIUM 3.1 mmol/L (3.5-5.1)
[2018-02-20] MEDS ORDERED: MIDAZOLAM HCL 1 MG/ML 2ML VIAL ONE (13:36)
[2018-02-20] MEDS ORDERED: FENTANYL CITRATE PF 50 MCG/1 ML 5ML AMP IV ONE (13:36)
[2018-02-20] MEDS ORDERED: PROPOFOL 10 MG/ML 20ML VIAL IV ONE (13:36)
[2018-02-20] MEDS: SODIUM CHLORIDE 0.9% 1000ML 1,000 ML IV SCH (14:30)
[2018-02-20] MEDS: METRONIDAZOLE 500 MG TABLET PO SCH ×2 (14:30→22:23)
[2018-02-20] MEDS: LEVOFLOXACIN 500 MG TABLET PO SCH (14:30)
[2018-02-20 16:00] VITALS: BP 118/57
[2018-02-20 19:00] VITALS: BP 125/83
[2018-02-20] MEDS ORDERED: POTASSIUM CHLORIDE 10% ELIXIR 20 MEQ/15 ML UDCUP ONE ×2 (22:17→23:56)
[2018-02-21] VITALS: BP 108/58
[2018-02-21] MEDS ORDERED: POTASSIUM CHLORIDE 10% ELIXIR 20 MEQ/15 ML UDCUP ONE (02:00)
[2018-02-21] MEDS: SODIUM CHLORIDE 0.9% 1000ML 1,000 ML IV SCH (02:28)
[2018-02-21 04:00] VITALS: BP 119/79
[2018-02-21] MEDS ORDERED: FUROSEMIDE 10 MG/ML 4ML VIAL IV SCH (04:15)
[2018-02-21] MEDS ORDERED: FUROSEMIDE 10 MG/ML 4ML VIAL ONE (04:20)
[2018-02-21 05:41] LABS: BASOPHILS % (AUTO) 0.4 % (0.0-5.0); EOSINOPHILS % (AUTO) 0.1 % (0.0-8.0); HEMATOCRIT 32.1 % (42-54); LYMPHOCYTES % (AUTO) 4.5 % (21.0-51.0); MEAN CORPUSCULAR HEMOGLOBIN 32.3 pg (27.0-33.0); MEAN CORPUSCULAR HGB CONC 34.7 g/dL (32.0-36.0); MEAN CORPUSCULAR VOLUME 93.2 fL (79-99); MONOCYTES % (AUTO) 8.6 % (3.0-13.0); NEUTROPHILS % (AUTO) 86.4 % (40.0-77.0); PLATELET COUNT (AUTO) 99 K/uL (130-400); RED BLOOD CELL COUNT(AUTO) 3.45 MIL/uL (4.50-6.20); RED CELL DISTRIBUTION WIDTH 14.7 % (11.0-15.5); WHITE BLOOD COUNT (AUTO) 12.3 K/uL (4.8-10.8)
[2018-02-21 05:52] LABS: CREATININE 1.1 mg/dL (0.5-1.5); POTASSIUM 3.6 mmol/L (3.5-5.1)
[2018-02-21] MEDS: METRONIDAZOLE 500 MG TABLET PO SCH (06:00)
[2018-02-21 07:00] VITALS: BP 132/77
[2018-02-21] MEDS: ACETAMINOPHEN 325 MG TAB PO PRN ×2 (08:15→22:25)
[2018-02-21] MEDS: KETOROLAC TROMETHAMINE 15MG/ML IV PRN (08:16)
[2018-02-21] MEDS: FAMOTIDINE/PF 20 MG/2 ML VIAL IV SCH ×2 (09:00→20:39)
[2018-02-21] MEDS: NEOMY SULF/BACITRAC ZN/POLY OINT 30GM TUBE TP SCH ×2 (09:00→20:41)
[2018-02-21] MEDS: METOCLOPRAMIDE 10 MG/2 ML VIAL IVP SCH ×3 (09:00→20:37)
[2018-02-21] MEDS ORDERED: FUROSEMIDE 20 MG TABLET PO SCH (09:00)
[2018-02-21] MEDS: LEVOFLOXACIN 500 MG TABLET PO SCH (09:00)
[2018-02-21 11:00] VITALS: BP 91/48
[2018-02-21] MEDS: FOLIC ACID 1 MG TABLET PO SCH (13:32)
[2018-02-21] MEDS: CYANOCOBALAMIN (VITAMIN B-12) 1,000 MCG TABLET PO SCH (13:32)
[2018-02-21] MEDS: LEVOFLOXACIN 250 MG/D5W 50ML 50 ML IV SCH (13:33)
[2018-02-21] MEDS: METRONIDAZOLE 500MG/100ML BAG 100 ML IV SCH ×2 (15:34→20:32)
[2018-02-21 16:00] VITALS: BP 98/52
[2018-02-21 19:05] VITALS: BP 126/66
[2018-02-22 00:05] VITALS: BP 111/58
[2018-02-22] MEDS: METRONIDAZOLE 500MG/100ML BAG 100 ML IV SCH ×2 (04:41→21:14)
[2018-02-22 04:48] LABS: MEAN CORPUSCULAR HGB CONC 34.5 g/dL (32.0-36.0); MEAN CORPUSCULAR VOLUME 92.7 fL (79-99); PLATELET COUNT (AUTO) 81 K/uL (130-400); RED BLOOD CELL COUNT(AUTO) 3.24 MIL/uL (4.50-6.20); RED CELL DISTRIBUTION WIDTH 14.5 % (11.0-15.5); WHITE BLOOD COUNT (AUTO) 10.5 K/uL (4.8-10.8)
[2018-02-22 04:50] VITALS: BP 133/73
[2018-02-22 05:00] LABS: CREATININE 0.9 mg/dL (0.5-1.5); POTASSIUM 3.1 mmol/L (3.5-5.1)
[2018-02-22] MEDS: MAGNESIUM 2GM PREMIX 50ML 50 ML IV PRN (06:20)
[2018-02-22] MEDS ORDERED: POTASSIUM CHLORIDE 10% ELIXIR 20 MEQ/15 ML UDCUP PO PRN (08:00)
[2018-02-22] MEDS ORDERED: LIDOCAINE HCL-MPF 1% 2ML VIAL IVP PRN (08:00)
[2018-02-22] MEDS ORDERED: POTASSIUM CHLORIDE 20MEQ/100ML 100 ML IV PRN (08:00)
[2018-02-22] MEDS: LEVOFLOXACIN 250 MG/D5W 50ML 50 ML IV SCH (08:28)
[2018-02-22] MEDS: POTASSIUM CHLORIDE 20 MEQ ERTAB PO PRN ×2 (08:28→12:24)
[2018-02-22] MEDS: CYANOCOBALAMIN (VITAMIN B-12) 1,000 MCG TABLET PO SCH (08:28)
[2018-02-22] MEDS: FAMOTIDINE/PF 20 MG/2 ML VIAL IV SCH (08:28)
[2018-02-22] MEDS: FOLIC ACID 1 MG TABLET PO SCH (08:28)
[2018-02-22] MEDS: METOCLOPRAMIDE 10 MG/2 ML VIAL IVP SCH ×4 (08:28→19:56)
[2018-02-22] MEDS: NEOMY SULF/BACITRAC ZN/POLY OINT 30GM TUBE TP SCH ×2 (08:29→19:56)
[2018-02-22 08:33] VITALS: BP 133/63
[2018-02-22] MEDS ORDERED: METOPROLOL TARTRATE 25 MG TAB PO SCH (10:00)
[2018-02-22 11:37] VITALS: BP 104/63
[2018-02-22] MEDS ORDERED: METRONIDAZOLE 500 MG TABLET PO SCH (11:45)
[2018-02-22] MEDS ORDERED: FAMO-136 PO (12:26)
[2018-02-22] MEDS ORDERED: METR250T4 PO (12:26)
[2018-02-22] MEDS ORDERED: LEVO500T2 PO (12:26)
[2018-02-22] MEDS: POTASSIUM CHLORIDE 10% ELIXIR 20 MEQ/15 ML UDCUP PO SCH (14:27)
[2018-02-22 15:54] VITALS: BP 106/56
[2018-02-22] MEDS: ZOSYN 3.375GM+NS 50ML 50 ML IV SCH (18:29)
[2018-02-22] MEDS: METOPROLOL TARTRATE 25 MG TAB PO SCH (19:56)
[2018-02-22 20:00] VITALS: BP 128/63
[2018-02-23] VITALS: BP 120/60
[2018-02-23] MEDS: ZOSYN 3.375GM+NS 50ML 50 ML IV SCH ×3 (01:35→17:28)
[2018-02-23] MEDS: ACETAMINOPHEN 325 MG TAB PO PRN (03:22)
[2018-02-23 04:00] VITALS: BP 128/66
[2018-02-23] MEDS: METRONIDAZOLE 500MG/100ML BAG 100 ML IV SCH ×3 (04:44→23:18)
[2018-02-23 05:40] LABS: MEAN CORPUSCULAR HEMOGLOBIN 32.6 pg (27.0-33.0); MEAN CORPUSCULAR HGB CONC 34.9 g/dL (32.0-36.0); MEAN CORPUSCULAR VOLUME 93.2 fL (79-99); NUCLEATED RED BLOOD CELLS 0.2 % (0.0-0.19); PLATELET COUNT (AUTO) 76 K/uL (130-400); RED BLOOD CELL COUNT(AUTO) 3.12 MIL/uL (4.50-6.20); WHITE BLOOD COUNT (AUTO) 10.2 K/uL (4.8-10.8)
[2018-02-23 05:56] LABS: ALBUMIN 1.7 g/dL (3.5-5.0); BILIRUBIN,TOTAL 1.6 mg/dL (0.2-1.0); CREATININE 0.8 mg/dL (0.5-1.5); POTASSIUM 3.6 mmol/L (3.5-5.1); TOTAL PROTEIN, SERUM 5.3 g/dL (6.0-8.3)
[2018-02-23] MEDS: POTASSIUM CHLORIDE 20 MEQ ERTAB PO PRN ×2 (06:14→09:15)
[2018-02-23] MEDS: FOLIC ACID 1 MG TABLET PO SCH (09:00)
[2018-02-23] MEDS ORDERED: LEVOFLOXACIN 500 MG TABLET PO SCH (09:00)
[2018-02-23] MEDS: CYANOCOBALAMIN (VITAMIN B-12) 1,000 MCG TABLET PO SCH (09:00)
[2018-02-23] MEDS: METOPROLOL TARTRATE 25 MG TAB PO SCH ×2 (09:01→20:36)
[2018-02-23] MEDS: NEOMY SULF/BACITRAC ZN/POLY OINT 30GM TUBE TP SCH ×2 (09:02→20:36)
[2018-02-23] MEDS: METOCLOPRAMIDE 10 MG/2 ML VIAL IVP SCH ×3 (09:05→20:36)
[2018-02-23] MEDS: POTASSIUM CHLORIDE 10% ELIXIR 20 MEQ/15 ML UDCUP PO SCH (09:15)
[2018-02-23 09:21] VITALS: BP 105/55
[2018-02-23 11:30] VITALS: BP 103/58
[2018-02-23 15:52] VITALS: BP 109/63
[2018-02-23 20:00] VITALS: BP 92/39
[2018-02-24] VITALS: BP 119/63
[2018-02-24] MEDS: ZOSYN 3.375GM+NS 50ML 50 ML IV SCH ×2 (01:42→09:22)
[2018-02-24 04:00] VITALS: BP 106/54
[2018-02-24 05:21] LABS: CREATININE 0.8 mg/dL (0.5-1.5); POTASSIUM 3.8 mmol/L (3.5-5.1)
[2018-02-24 05:22] LABS: HEMATOCRIT 30.3 % (42-54); MEAN CORPUSCULAR HEMOGLOBIN 31.5 pg (27.0-33.0); MEAN CORPUSCULAR VOLUME 92.8 fL (79-99); PLATELET COUNT (AUTO) 84 K/uL (130-400); RED BLOOD CELL COUNT(AUTO) 3.27 MIL/uL (4.50-6.20); RED CELL DISTRIBUTION WIDTH 14.8 % (11.0-15.5); WHITE BLOOD COUNT (AUTO) 11.2 K/uL (4.8-10.8)
[2018-02-24] MEDS: METRONIDAZOLE 500MG/100ML BAG 100 ML IV SCH (05:46)
[2018-02-24 05:47] LABS: LYMPHOCYTES % (MANUAL) 4 % (22-44); MAN.DIFF COMMENT-IMPRESSION MANUAL DIFFERENTIAL; MONOCYTES % (MANUAL) 4 % (2-9); SEGMENTED NEUTROPHILS % 92 % (40-70)
[2018-02-24 05:48] LABS: PLATELET MORPHOLOGY COMMENT DECREASED
[2018-02-24] MEDS ORDERED: CEPH500C2 PO (08:36)
[2018-02-24 08:40] VITALS: BP 120/60
[2018-02-24] MEDS: FOLIC ACID 1 MG TABLET PO SCH (09:21)
[2018-02-24] MEDS: METOCLOPRAMIDE 10 MG/2 ML VIAL IVP SCH (09:21)
[2018-02-24] MEDS: CYANOCOBALAMIN (VITAMIN B-12) 1,000 MCG TABLET PO SCH (09:21)
[2018-02-24] MEDS: METOPROLOL TARTRATE 25 MG TAB PO SCH (09:22)
[2018-02-24] MEDS: NEOMY SULF/BACITRAC ZN/POLY OINT 30GM TUBE TP SCH (09:22)
[2018-02-24] MEDS: POTASSIUM CHLORIDE 10% ELIXIR 20 MEQ/15 ML UDCUP PO SCH (11:12)
[2018-02-24 11:17] VITALS: BP 102/67
== END 2018-02-24 14:30 | disposition home or self-care (01) | DRG 854 ==
LOC: EDH 23:26 → EDHIP 23:27 → 3AH 02-09 03:07 → 2CH 02-13 16:24 → 3BH 02-14 18:05
PROVIDERS: ADMIT Internal Medicine; ATTEND Internal Medicine
PROC: 30233R1 Transfusion of Nonautologous Platelets into Peripheral Vein, Percutaneous Approach (ICD-10-PCS; 2018-02-10)
PROC: 30233N1 Transfusion of Nonautologous Red Blood Cells into Peripheral Vein, Percutaneous Approach (ICD-10-PCS; 2018-02-10)
PROC: 5A09357 Assistance with Respiratory Ventilation, Less than 24 Consecutive Hours, Continuous Positive Airway Pressure (ICD-10-PCS; 2018-02-10)
PROC: 5A09357 Assistance with Respiratory Ventilation, Less than 24 Consecutive Hours, Continuous Positive Airway Pressure (ICD-10-PCS; 2018-02-11)
PROC: 07DR3ZX Extraction of Iliac Bone Marrow, Percutaneous Approach, Diagnostic (ICD-10-PCS; 2018-02-11)
PROC: 0FT44ZZ Resection of Gallbladder, Percutaneous Endoscopic Approach (ICD-10-PCS; principal; 2018-02-13 10:05)
PROC: 0YQ54ZZ Repair Right Inguinal Region, Percutaneous Endoscopic Approach (ICD-10-PCS; 2018-02-13 10:05)
DX: A41.50 Gram-negative sepsis, unspecified (principal); K80.00 Calculus of gallbladder with acute cholecystitis without obstruction; D69.3 Immune thrombocytopenic purpura; C94.6 Myelodysplastic disease, not elsewhere classified; I50.30 Unspecified diastolic (congestive) heart failure; E87.6 Hypokalemia; K40.90 Unilateral inguinal hernia, without obstruction or gangrene, not specified as recurrent; D64.9 Anemia, unspecified; R91.8 Other nonspecific abnormal finding of lung field; R54 Age-related physical debility; D69.59 Other secondary thrombocytopenia; G89.29 Other chronic pain; I11.0 Hypertensive heart disease with heart failure; I44.7 Left bundle-branch block, unspecified; K82.8 Other specified diseases of gallbladder; Z53.9 Procedure and treatment not carried out, unspecified reason; Z87.891 Personal history of nicotine dependence; Z90.49 Acquired absence of other specified parts of digestive tract
CPT/HCPCS: 36415; 36430; 36600; 38222; 71045; 71250; 74176; 76705; 77012; 80048; 80053; 80202; 81001; 81003; 82150; 82803; 83690; 83735; 83880; 84100; 84132; 84484; 85014; 85018; 85025; 85027; 85049; 85097; 85610; 85730; 86078; 86850; 86900; 86901; 86922; 87040; 87077; 87088; 87186; 88304; 88305; 88311; 88312; 88313; 93005; 93306; 94640; 94660; 94664; 97039; 99152; A4218; A4344; G0008; J0330; J1100; J1200; J1885; J1940; J1956; J2001; J2175; J2250; J2370; J2405; J2543; J2550; J2704; J2710; J2765; J2930; J3010; J3370; J3475; J3480; J3490; J7030; J7120; P9016; P9034; Q0161; Q2038

== ENCOUNTER 2018-03-02 01:36 | Inpatient (IN) | payer OTHER ==
[~2018-03-02] VITALS: Ht 175.3 cm; Wt 73.5 kg
[~2018-03-02 01:36] MED LIST: CEPH500C2 PO; FAMO-136 PO
[2018-03-02 02:00] LABS: BASOPHILS % (AUTO) 0.8 % (0.0-5.0); EOSINOPHILS % (AUTO) 0.6 % (0.0-8.0); LYMPHOCYTES % (AUTO) 7.8 % (21.0-51.0); MEAN CORPUSCULAR HEMOGLOBIN 30.2 pg (27.0-33.0); MEAN CORPUSCULAR HGB CONC 32.9 g/dL (32.0-36.0); MEAN CORPUSCULAR VOLUME 91.9 fL (79-99); MONOCYTES % (AUTO) 6.7 % (3.0-13.0); NEUTROPHILS % (AUTO) 84.1 % (40.0-77.0); PLATELET COUNT (AUTO) 127 K/uL (130-400); RED BLOOD CELL COUNT(AUTO) 3.81 MIL/uL (4.50-6.20); RED CELL DISTRIBUTION WIDTH 15.2 % (11.0-15.5); WHITE BLOOD COUNT (AUTO) 9.1 K/uL (4.8-10.8)
[2018-03-02 02:09] LABS: CARBON DIOXIDE 27 mmol/L (21-32); CHLORIDE 102 mmol/L (101-111); CREATININE 0.8 mg/dL (0.5-1.5); GLOMERULAR FILTR. RATE CALC 97 mL/min (>60); GLUCOSE,RANDOM 119 mg/dL (70-105); INR 1.16 (0.85-1.15); PARTIAL THROMBOPLASTIN TIME 29.8 SEC (26.3-35.5); POTASSIUM 4.4 mmol/L (3.5-5.1); PROTHROMBIN TIME 12.1 SEC (9.6-11.6); SODIUM SERUM 134 mmol/L (136-145); UREA NITROGEN, BLOOD 14 mg/dL (7-18)
[2018-03-02 02:18] LABS: APPEARANCE,URINE Clear (CLEAR); BILIRUBIN,URINE Small (NEGATIVE); COLOR,URINE Dark Yellow (YELLOW); GLUCOSE, URINE (UA) Negative (NEGATIVE); KETONES,URINE Trace mg/dL (NEGATIVE); LEUKOCYTE ESTERASE ,URINE Trace (NEGATIVE); NITRATE,URINE Positive (NEGATIVE); OCCULT BLOOD,URINE Negative (NEGATIVE); PH,URINE 6.5 (5.0-8.0); PROTEIN,URINE Trace (NEGATIVE)
[2018-03-02 02:20] LABS: ALANINE AMINOTRANSFERASE 133 U/L (12-78); ALBUMIN 1.9 g/dL (3.5-5.0); ASPARTATE AMINOTRANSFERASE 202 U/L (10-37); BILIRUBIN,TOTAL 2.1 mg/dL (0.2-1.0); CREATINE KINASE, TOTAL 34 U/L (21-232); MYOGLOBIN 58 ng/mL (10-92); TOTAL PROTEIN, SERUM 6.3 g/dL (6.0-8.3); TROPONIN I < 0.04 ng/mL (0.00-0.06)
[2018-03-02 02:27] LABS: BACTERIA,URINE None Seen /HPF (None Seen); MUCUS,URINE Few LPF (None Seen); RBC,URINE 0-1 /HPF (0-1); SQUAMOUS EPITHELIAL CELL,UR Rare /HPF (0-2); WBC,URINE 0-1 /HPF (0-1)
[2018-03-02] MEDS ORDERED: SODIUM CHLORIDE 0.9% 1000ML 1,000 ML IV ONE ×2 (02:33→05:23)
[2018-03-02] MEDS ORDERED: ZOSYN 3.375GM+NS 50ML 50 ML IV ONE (02:43)
[2018-03-02] MEDS ORDERED: SODIUM CHLORIDE 0.9% 50 ML IV ONE (02:43)
[2018-03-02] MEDS ORDERED: IOHEXOL-350 75 ML VIAL IV ONE (02:48)
[2018-03-02] MEDS: SODIUM CHLORIDE 0.9% 1000ML 1,000 ML IV SCH ×2 (04:40→12:47)
[2018-03-02] MEDS ORDERED: ONDANSETRON HCL 4 MG/2 ML VIAL IV PRN (04:45)
[2018-03-02] MEDS ORDERED: CEFAZOLIN SODIUM 1 GM VIAL ONE (05:23)
[2018-03-02] MEDS: CEFAZOLIN SODIUM 1 GM VIAL IVP SCH ×3 (05:30→20:20)
[2018-03-02] MEDS ORDERED: DiphenhydrAMINE HCL 25 MG/10 ML ELIXIR UDCUP ONE (06:35)
[2018-03-02 07:45] VITALS: BP 102/76
[2018-03-02] MEDS ORDERED: DEXAMETHASONE 10MG/ML 1ML VIAL 0 MG in SODIUM CHLORIDE 0.9% 50 ML IV ONE (08:00)
[2018-03-02] MEDS: ENOXAPARIN SODIUM 30 MG/0.3 ML SQ SCH (09:00)
[2018-03-02] MEDS: PANTOPRAZOLE 40 MG/VIAL IVP SCH (09:00)
[2018-03-02 11:31] VITALS: BP 106/59
[2018-03-02] MEDS: MORPHINE SULFATE 2 MG/ML 1ML SYG IVP PRN (16:02)
[2018-03-02 16:35] VITALS: BP 126/76
[2018-03-02 19:02] VITALS: BP 108/64
[2018-03-02 23:15] VITALS: BP 113/72
[2018-03-03] VITALS (18 sets, daily range): BP systolic 92–117; BP diastolic 36–72
[2018-03-03 03:47] LABS: BASOPHILS % (AUTO) 0.2 % (0.0-5.0); EOSINOPHILS % (AUTO) 0.3 % (0.0-8.0); HEMATOCRIT 31.1 % (42-54); LYMPHOCYTES % (AUTO) 8.5 % (21.0-51.0); MEAN CORPUSCULAR HEMOGLOBIN 31.7 pg (27.0-33.0); MEAN CORPUSCULAR HGB CONC 34.2 g/dL (32.0-36.0); MEAN CORPUSCULAR VOLUME 92.7 fL (79-99); MONOCYTES % (AUTO) 7.5 % (3.0-13.0); NEUTROPHILS % (AUTO) 83.5 % (40.0-77.0); PLATELET COUNT (AUTO) 132 K/uL (130-400); RED BLOOD CELL COUNT(AUTO) 3.36 MIL/uL (4.50-6.20); RED CELL DISTRIBUTION WIDTH 15.6 % (11.0-15.5); WHITE BLOOD COUNT (AUTO) 6.9 K/uL (4.8-10.8)
[2018-03-03] MEDS: CEFAZOLIN SODIUM 1 GM VIAL IVP SCH ×3 (04:09→20:14)
[2018-03-03 04:12] LABS: ALBUMIN 1.6 g/dL (3.5-5.0); BILIRUBIN,TOTAL 2.7 mg/dL (0.2-1.0); CREATININE 0.8 mg/dL (0.5-1.5); POTASSIUM 4.2 mmol/L (3.5-5.1); TOTAL PROTEIN, SERUM 5.5 g/dL (6.0-8.3)
[2018-03-03] MEDS: MORPHINE SULFATE 2 MG/ML 1ML SYG IVP PRN (04:23)
[2018-03-03] MEDS: PANTOPRAZOLE 40 MG/VIAL IVP SCH (10:11)
[2018-03-03] MEDS: ENOXAPARIN SODIUM 30 MG/0.3 ML SQ SCH (10:11)
[2018-03-03] MEDS: SODIUM CHLORIDE 0.9% 1000ML 1,000 ML IV SCH ×3 (10:12→20:40)
[2018-03-03] MEDS ORDERED: IOHEXOL-350 50ML VIAL IV ONE (15:23)
[2018-03-03] MEDS ORDERED: PROPOFOL 1000 MG/100 ML 100 ML IV ONE (15:33)
[2018-03-03] MEDS ORDERED: GLUCAGON 1MG KIT 1 MG ML ONE (15:33)
[2018-03-03] MEDS ORDERED: LACTATED RINGERS 1000ML 1,000 ML IV ONE (17:21)
[2018-03-03] MEDS: INDOMETHACIN 50 MG SUPP.RECT RC SCH (17:22)
[2018-03-04] VITALS (7 sets, daily range): BP systolic 99–120; BP diastolic 43–67
[2018-03-04 03:37] LABS: HEMATOCRIT 30.6 % (42-54); MEAN CORPUSCULAR HGB CONC 33.3 g/dL (32.0-36.0); MEAN CORPUSCULAR VOLUME 93.2 fL (79-99); PLATELET COUNT (AUTO) 126 K/uL (130-400); RED BLOOD CELL COUNT(AUTO) 3.28 MIL/uL (4.50-6.20); RED CELL DISTRIBUTION WIDTH 15.6 % (11.0-15.5); WHITE BLOOD COUNT (AUTO) 7.3 K/uL (4.8-10.8)
[2018-03-04 04:02] LABS: ALBUMIN 1.4 g/dL (3.5-5.0); BILIRUBIN,TOTAL 1.8 mg/dL (0.2-1.0); CREATININE 0.7 mg/dL (0.5-1.5); POTASSIUM 4.2 mmol/L (3.5-5.1); TOTAL PROTEIN, SERUM 4.9 g/dL (6.0-8.3)
[2018-03-04] MEDS: CEFAZOLIN SODIUM 1 GM VIAL IVP SCH ×3 (05:30→21:33)
[2018-03-04] MEDS: SODIUM CHLORIDE 0.9% 1000ML 1,000 ML IV SCH ×3 (06:40→19:27)
[2018-03-04] MEDS: ENOXAPARIN SODIUM 30 MG/0.3 ML SQ SCH (14:47)
[2018-03-04] MEDS: PANTOPRAZOLE 40 MG/VIAL IVP SCH (14:47)
[2018-03-04] MEDS: INDOMETHACIN 50 MG SUPP.RECT RC SCH (15:12)
[2018-03-05] VITALS (11 sets, daily range): BP systolic 106–144; BP diastolic 56–71
[2018-03-05 04:21] LABS: HEMATOCRIT 32.1 % (42-54); INR 1.09 (0.85-1.15); MEAN CORPUSCULAR HEMOGLOBIN 30.5 pg (27.0-33.0); MEAN CORPUSCULAR HGB CONC 33.1 g/dL (32.0-36.0); NUCLEATED RED BLOOD CELLS 0.2 % (0.0-0.19); PARTIAL THROMBOPLASTIN TIME 32.9 SEC (26.3-35.5); PLATELET COUNT (AUTO) 127 K/uL (130-400); PROTHROMBIN TIME 11.4 SEC (9.6-11.6); RED BLOOD CELL COUNT(AUTO) 3.49 MIL/uL (4.50-6.20); RED CELL DISTRIBUTION WIDTH 15.8 % (11.0-15.5); WHITE BLOOD COUNT (AUTO) 5.4 K/uL (4.8-10.8)
[2018-03-05 04:37] LABS: ALBUMIN 1.5 g/dL (3.5-5.0); BILIRUBIN,TOTAL 1.3 mg/dL (0.2-1.0); CREATININE 0.7 mg/dL (0.5-1.5); CRP QUANTITATIVE 117.5 mg/L (0.00-9.0); POTASSIUM 4.2 mmol/L (3.5-5.1); TOTAL PROTEIN, SERUM 5.1 g/dL (6.0-8.3)
[2018-03-05] MEDS: CEFAZOLIN SODIUM 1 GM VIAL IVP SCH ×3 (04:53→20:01)
[2018-03-05] MEDS: ENOXAPARIN SODIUM 30 MG/0.3 ML SQ SCH (08:24)
[2018-03-05] MEDS: PANTOPRAZOLE SODIUM 40 MG TABLET.DR PO SCH (08:55)
[2018-03-05] MEDS: ACETAMINOPHEN 325 MG TAB PO PRN ×2 (11:45→20:00)
[2018-03-05] MEDS ORDERED: IODIXANOL 320 MG/ML 100 ML VIAL ONE (15:15)
[2018-03-05] MEDS ORDERED: LIDOCAINE HCL 1% MDV 50ML VIAL ONE (15:16)
[2018-03-05] MEDS ORDERED: MIDAZOLAM HCL 1 MG/ML 2ML VIAL ONE (16:00)
[2018-03-05] MEDS ORDERED: FENTANYL CITRATE PF 50 MCG/1 ML 2ML VIAL ONE (16:00)
[2018-03-05] MEDS ORDERED: LIDOCAINE HCL MPF 1% 5ML VIAL ONE (16:54)
[2018-03-05 17:30] LABS: APPEARANCE BODY FLUID TURBID (CLEAR); BODY FLUID WBC 212960 /cu. mm.; COLOR,BODY FLUID RED (LT YELLOW); SPECIMENTYPE,BODY FLUID PERIHEPATIC ABSCESS; TOTAL VOLUME,BODY FLUID 20 mL
[2018-03-05 17:31] LABS: BODY FLUID RBC 283360 /cu. mm.
[2018-03-05] MEDS: MORPHINE SULFATE 2 MG/ML 1ML SYG IVP PRN ×2 (18:14→23:49)
[2018-03-05] MEDS: SODIUM CHLORIDE 0.9% 1000ML 1,000 ML IV SCH (18:14)
[2018-03-05 18:21] LABS: BF LYMPHOCYTE 1 %; TOTAL BILIRUBIN, BODY FLUID < 0.1 mg/dL
[2018-03-05] MEDS ORDERED: VANCOMYCIN PROTOCOL PER PHARMACY IV PRN (20:30)
[2018-03-05] MEDS: HYDROCODONE/ACETAMINOPHEN 5/325 MG TAB PO PRN (20:42)
[2018-03-05] MEDS ORDERED: COMPOUND IV REFRIGERATED 1 EACH IVSOLN MISC PRN (20:45)
[2018-03-05] MEDS ORDERED: VANCOMYCIN 1.5 GM in SODIUM CHLORIDE 0.9% 250 ML IV ONE (21:00)
[2018-03-06 00:01] VITALS: BP 115/54
[2018-03-06 04:00] VITALS: BP 120/69
[2018-03-06] MEDS: HYDROCODONE/ACETAMINOPHEN 5/325 MG TAB PO PRN (04:01)
[2018-03-06] MEDS: SODIUM CHLORIDE 0.9% 1000ML 1,000 ML IV SCH ×2 (04:01→18:52)
[2018-03-06 04:50] LABS: HEMATOCRIT 32.7 % (42-54); MEAN CORPUSCULAR HEMOGLOBIN 31.8 pg (27.0-33.0); MEAN CORPUSCULAR HGB CONC 34.1 g/dL (32.0-36.0); MEAN CORPUSCULAR VOLUME 93.1 fL (79-99); NUCLEATED RED BLOOD CELLS 0.1 % (0.0-0.19); PLATELET COUNT (AUTO) 136 K/uL (130-400); RED BLOOD CELL COUNT(AUTO) 3.51 MIL/uL (4.50-6.20); RED CELL DISTRIBUTION WIDTH 15.8 % (11.0-15.5); WHITE BLOOD COUNT (AUTO) 6.4 K/uL (4.8-10.8)
[2018-03-06 05:01] LABS: % IRON SATURATION 15.5 % (30-44)
[2018-03-06 05:19] LABS: CREATININE 0.7 mg/dL (0.5-1.5); THYROID STIMULATING HORMONE 12.36 uIU/mL (0.36-3.74)
[2018-03-06] MEDS: CEFAZOLIN SODIUM 1 GM VIAL IVP SCH ×3 (05:45→20:27)
[2018-03-06] MEDS: PANTOPRAZOLE SODIUM 40 MG TABLET.DR PO SCH (05:46)
[2018-03-06] MEDS: MORPHINE SULFATE 2 MG/ML 1ML SYG IVP PRN ×2 (06:05→20:28)
[2018-03-06 07:44] VITALS: BP 106/62
[2018-03-06] MEDS ORDERED: COMPOUND IV MISC 1 EACH IVSOLN MISC PRN (08:45)
[2018-03-06] MEDS ORDERED: MEGESTROL 400 MG/10 ML UDCUP PO SCH (09:00)
[2018-03-06] MEDS: ASCORBIC ACID 500 MG TAB PO SCH (09:12)
[2018-03-06] MEDS: ENOXAPARIN SODIUM 30 MG/0.3 ML SQ SCH (09:13)
[2018-03-06] MEDS: VANCOMYCIN 750MG + NS 250 ML IV SCH ×4 (09:14→20:28)
[2018-03-06 11:24] VITALS: BP 103/61
[2018-03-06] MEDS: IRON SUCROSE COMPLEX 100 MG in SODIUM CHLORIDE 0.9% 50 ML IV SCH (11:31)
[2018-03-06] MEDS: ALBUMIN (HUMAN) 25% 50 ML IV SCH ×2 (15:57→20:27)
[2018-03-06 16:12] VITALS: BP 134/76
[2018-03-06 19:56] VITALS: BP 142/69
[2018-03-06] MEDS: MEGESTROL 400 MG/10 ML UDCUP PO SCH (20:27)
[2018-03-06] MEDS ORDERED: METOPROLOL TARTRATE 1 MG/ML 5ML VIAL IV ONE (23:13)
[2018-03-06] MEDS: METOPROLOL TARTRATE 1 MG/ML 5ML VIAL IV SCH (23:15)
[2018-03-07] VITALS: BP 113/42
[2018-03-07] MEDS: ACETAMINOPHEN 325 MG TAB PO PRN ×2 (02:59→21:07)
[2018-03-07] MEDS: HYDROCODONE/ACETAMINOPHEN 5/325 MG TAB PO PRN (02:59)
[2018-03-07 04:13] VITALS: BP 119/60
[2018-03-07] MEDS: CEFAZOLIN SODIUM 1 GM VIAL IVP SCH ×3 (04:19→20:48)
[2018-03-07] MEDS: SODIUM CHLORIDE 0.9% 1000ML 1,000 ML IV SCH ×2 (04:40→14:06)
[2018-03-07 04:48] LABS: HEMATOCRIT 30.6 % (42-54); MEAN CORPUSCULAR HGB CONC 33.8 g/dL (32.0-36.0); MEAN CORPUSCULAR VOLUME 91.7 fL (79-99); NUCLEATED RED BLOOD CELLS 0.2 % (0.0-0.19); PLATELET COUNT (AUTO) 94 K/uL (130-400); RED BLOOD CELL COUNT(AUTO) 3.34 MIL/uL (4.50-6.20); RED CELL DISTRIBUTION WIDTH 15.7 % (11.0-15.5); WHITE BLOOD COUNT (AUTO) 7.4 K/uL (4.8-10.8)
[2018-03-07 05:00] LABS: ALBUMIN 1.7 g/dL (3.5-5.0); BILIRUBIN,TOTAL 1.3 mg/dL (0.2-1.0); CREATININE 0.6 mg/dL (0.5-1.5); POTASSIUM 3.2 mmol/L (3.5-5.1); TOTAL PROTEIN, SERUM 4.8 g/dL (6.0-8.3)
[2018-03-07 08:05] VITALS: BP 117/55
[2018-03-07] MEDS: PANTOPRAZOLE SODIUM 40 MG TABLET.DR PO SCH (08:34)
[2018-03-07] MEDS: IRON SUCROSE COMPLEX 100 MG in SODIUM CHLORIDE 0.9% 50 ML IV SCH (08:34)
[2018-03-07] MEDS: ASCORBIC ACID 500 MG TAB PO SCH (08:34)
[2018-03-07] MEDS: MEGESTROL 400 MG/10 ML UDCUP PO SCH ×2 (08:34→20:48)
[2018-03-07] MEDS: ENOXAPARIN SODIUM 30 MG/0.3 ML SQ SCH (08:38)
[2018-03-07] MEDS: POTASSIUM CHLORIDE 20 MEQ ERTAB PO PRN ×3 (09:52→20:52)
[2018-03-07] MEDS ORDERED: LIDOCAINE HCL-MPF 1% 2ML VIAL IVP PRN (10:00)
[2018-03-07] MEDS ORDERED: POTASSIUM CHLORIDE 20MEQ/100ML 100 ML IV PRN (10:00)
[2018-03-07 10:35] VITALS: BP 112/59
[2018-03-07] MEDS: VANCOMYCIN 1GM+NS 250ML 250 ML IV SCH (14:06)
[2018-03-07 16:00] VITALS: BP 132/67
[2018-03-07 19:10] VITALS: BP 115/63
[2018-03-07] MEDS: FUROSEMIDE 10 MG/ML 2ML VIAL IV SCH (20:48)
[2018-03-07] MEDS: METOPROLOL TARTRATE 1 MG/ML 5ML VIAL IV SCH (23:15)
[2018-03-08] VITALS (7 sets, daily range): BP systolic 104–127; BP diastolic 50–74
[2018-03-08] MEDS: VANCOMYCIN 1GM+NS 250ML 250 ML IV SCH ×2 (01:05→08:38)
[2018-03-08] MEDS: CEFAZOLIN SODIUM 1 GM VIAL IVP SCH ×3 (06:00→20:39)
[2018-03-08] MEDS: FUROSEMIDE 10 MG/ML 2ML VIAL IV SCH ×2 (08:38→20:39)
[2018-03-08] MEDS: IRON SUCROSE COMPLEX 100 MG in SODIUM CHLORIDE 0.9% 50 ML IV SCH (08:38)
[2018-03-08] MEDS: ASCORBIC ACID 500 MG TAB PO SCH (08:38)
[2018-03-08] MEDS: MEGESTROL 400 MG/10 ML UDCUP PO SCH ×2 (08:38→20:39)
[2018-03-08] MEDS: PANTOPRAZOLE SODIUM 40 MG TABLET.DR PO SCH (08:38)
[2018-03-08] MEDS: ENOXAPARIN SODIUM 30 MG/0.3 ML SQ SCH (08:39)
[2018-03-08] MEDS: SODIUM CHLORIDE 0.9% 1000ML 1,000 ML IV SCH ×2 (08:39→10:40)
[2018-03-08] MEDS ORDERED: LORAZEPAM 2 MG/ML 1 ML VIAL IVP PRN (11:45)
[2018-03-08] MEDS: POTASSIUM CHLORIDE 20 MEQ ERTAB PO PRN ×2 (11:56→17:46)
[2018-03-08] MEDS: POTASSIUM CHLORIDE 10% ELIXIR 20 MEQ/15 ML UDCUP PO PRN ×2 (11:57→15:45)
[2018-03-09 03:00] VITALS: BP 123/60
[2018-03-09 04:52] LABS: HEMATOCRIT 30.2 % (42-54); MEAN CORPUSCULAR HEMOGLOBIN 30.6 pg (27.0-33.0); MEAN CORPUSCULAR HGB CONC 33.1 g/dL (32.0-36.0); MEAN CORPUSCULAR VOLUME 92.3 fL (79-99); NUCLEATED RED BLOOD CELLS 0.1 % (0.0-0.19); PLATELET COUNT (AUTO) 83 K/uL (130-400); RED BLOOD CELL COUNT(AUTO) 3.27 MIL/uL (4.50-6.20); RED CELL DISTRIBUTION WIDTH 16.6 % (11.0-15.5); WHITE BLOOD COUNT (AUTO) 6.2 K/uL (4.8-10.8)
[2018-03-09 05:05] LABS: CREATININE 0.6 mg/dL (0.5-1.5); POTASSIUM 3.6 mmol/L (3.5-5.1)
[2018-03-09] MEDS: CEFAZOLIN SODIUM 1 GM VIAL IVP SCH ×3 (05:25→21:20)
[2018-03-09 07:56] VITALS: BP 112/65
[2018-03-09] MEDS: MEGESTROL 400 MG/10 ML UDCUP PO SCH ×2 (08:32→21:20)
[2018-03-09] MEDS: POTASSIUM CHLORIDE 20 MEQ ERTAB PO PRN ×2 (08:32→12:53)
[2018-03-09] MEDS: PANTOPRAZOLE SODIUM 40 MG TABLET.DR PO SCH (08:32)
[2018-03-09] MEDS: ASCORBIC ACID 500 MG TAB PO SCH (08:32)
[2018-03-09] MEDS: FUROSEMIDE 10 MG/ML 2ML VIAL IV SCH ×2 (08:33→21:20)
[2018-03-09] MEDS: ENOXAPARIN SODIUM 30 MG/0.3 ML SQ SCH (08:44)
[2018-03-09 11:58] VITALS: BP 123/65
[2018-03-09 16:01] VITALS: BP 114/65
[2018-03-09 19:00] VITALS: BP 105/61
[2018-03-09] MEDS: HYDROCODONE/ACETAMINOPHEN 5/325 MG TAB PO PRN ×2 (21:54→21:56)
[2018-03-09 23:00] VITALS: BP 103/58
[2018-03-10 03:00] VITALS: BP 100/56
[2018-03-10] MEDS: CEFAZOLIN SODIUM 1 GM VIAL IVP SCH ×3 (06:02→22:09)
[2018-03-10] MEDS: PANTOPRAZOLE SODIUM 40 MG TABLET.DR PO SCH (07:02)
[2018-03-10 07:59] VITALS: BP 122/66
[2018-03-10] MEDS: MEGESTROL 400 MG/10 ML UDCUP PO SCH ×2 (09:39→22:09)
[2018-03-10] MEDS: ASCORBIC ACID 500 MG TAB PO SCH (09:39)
[2018-03-10] MEDS: FUROSEMIDE 10 MG/ML 2ML VIAL IV SCH ×2 (09:40→22:09)
[2018-03-10] MEDS: TAMSULOSIN HCL 0.4 MG CAP.ER.24H PO SCH (09:46)
[2018-03-10 11:17] VITALS: BP 130/71
[2018-03-10 16:02] VITALS: BP 108/51
[2018-03-10 19:00] VITALS: BP 108/61
[2018-03-10 23:00] VITALS: BP 106/55
[2018-03-11 03:00] VITALS: BP 109/61
[2018-03-11] MEDS: PANTOPRAZOLE SODIUM 40 MG TABLET.DR PO SCH (05:03)
[2018-03-11] MEDS: CEFAZOLIN SODIUM 1 GM VIAL IVP SCH ×3 (05:03→21:24)
[2018-03-11 07:00] VITALS: BP 111/62
[2018-03-11] MEDS: TAMSULOSIN HCL 0.4 MG CAP.ER.24H PO SCH (10:42)
[2018-03-11] MEDS: ASCORBIC ACID 500 MG TAB PO SCH (10:42)
[2018-03-11] MEDS: FUROSEMIDE 10 MG/ML 2ML VIAL IV SCH ×2 (10:42→21:25)
[2018-03-11] MEDS: MEGESTROL 400 MG/10 ML UDCUP PO SCH ×2 (10:43→21:25)
[2018-03-11 11:37] VITALS: BP 108/61
[2018-03-11 16:34] VITALS: BP 99/63
[2018-03-11 20:00] VITALS: BP 108/65
[2018-03-12] VITALS: BP 106/64
[2018-03-12 04:00] VITALS: BP 108/65
[2018-03-12] MEDS: CEFAZOLIN SODIUM 1 GM VIAL IVP SCH ×3 (04:46→20:02)
[2018-03-12] MEDS: PANTOPRAZOLE SODIUM 40 MG TABLET.DR PO SCH (05:52)
[2018-03-12 07:00] VITALS: BP 107/64
[2018-03-12] MEDS: MEGESTROL 400 MG/10 ML UDCUP PO SCH (10:16)
[2018-03-12] MEDS: ASCORBIC ACID 500 MG TAB PO SCH (10:16)
[2018-03-12] MEDS: TAMSULOSIN HCL 0.4 MG CAP.ER.24H PO SCH (10:16)
[2018-03-12] MEDS: FUROSEMIDE 10 MG/ML 2ML VIAL IV SCH ×2 (10:16→20:02)
[2018-03-12 10:41] VITALS: BP 107/50
[2018-03-12 16:10] VITALS: BP 125/64
[2018-03-12] MEDS ORDERED: IOHEXOL-350 75 ML VIAL IV ONE (16:54)
[2018-03-12 20:00] VITALS: BP 104/64
[2018-03-12] MEDS: DRONABINOL 2.5 MG CAP PO SCH (20:02)
[2018-03-13] VITALS (7 sets, daily range): BP systolic 94–118; BP diastolic 51–67
[2018-03-13] MEDS: CEFAZOLIN SODIUM 1 GM VIAL IVP SCH ×3 (04:21→22:15)
[2018-03-13] MEDS: PANTOPRAZOLE SODIUM 40 MG TABLET.DR PO SCH (05:59)
[2018-03-13 06:14] LABS: HEMATOCRIT 31.4 % (42-54); MEAN CORPUSCULAR HEMOGLOBIN 31.3 pg (27.0-33.0); MEAN CORPUSCULAR HGB CONC 33.8 g/dL (32.0-36.0); MEAN CORPUSCULAR VOLUME 92.7 fL (79-99); NUCLEATED RED BLOOD CELLS 0.1 % (0.0-0.19); PLATELET COUNT (AUTO) 101 K/uL (130-400); RED BLOOD CELL COUNT(AUTO) 3.39 MIL/uL (4.50-6.20); RED CELL DISTRIBUTION WIDTH 16.6 % (11.0-15.5); WHITE BLOOD COUNT (AUTO) 5.9 K/uL (4.8-10.8)
[2018-03-13 06:57] LABS: ALBUMIN 1.5 g/dL (3.5-5.0); BILIRUBIN,TOTAL 1.2 mg/dL (0.2-1.0); CREATININE 0.6 mg/dL (0.5-1.5); MAGNESIUM 1.7 mg/dL (1.80-2.40); PHOSPHORUS 3.1 mg/dL (2.5-4.9); POTASSIUM 3.2 mmol/L (3.5-5.1)
[2018-03-13] MEDS: TAMSULOSIN HCL 0.4 MG CAP.ER.24H PO SCH (09:09)
[2018-03-13] MEDS: DRONABINOL 2.5 MG CAP PO SCH ×2 (09:09→22:15)
[2018-03-13] MEDS: ASCORBIC ACID 500 MG TAB PO SCH (09:09)
[2018-03-13] MEDS: FUROSEMIDE 10 MG/ML 2ML VIAL IV SCH ×2 (09:09→22:15)
[2018-03-13] MEDS: POTASSIUM CHLORIDE 20 MEQ ERTAB PO PRN ×3 (09:16→22:16)
[2018-03-13] MEDS ORDERED: MAGNESIUM 2GM PREMIX 50ML 50 ML IV SCH (13:45)
[2018-03-14 03:00] VITALS: BP 119/59
[2018-03-14 05:16] LABS: HEMATOCRIT 32.5 % (42-54); MEAN CORPUSCULAR HEMOGLOBIN 30.6 pg (27.0-33.0); MEAN CORPUSCULAR HGB CONC 32.8 g/dL (32.0-36.0); MEAN CORPUSCULAR VOLUME 93.3 fL (79-99); NUCLEATED RED BLOOD CELLS 0.1 % (0.0-0.19); PLATELET COUNT (AUTO) 90 K/uL (130-400); RED BLOOD CELL COUNT(AUTO) 3.48 MIL/uL (4.50-6.20); RED CELL DISTRIBUTION WIDTH 17.6 % (11.0-15.5); WHITE BLOOD COUNT (AUTO) 6.1 K/uL (4.8-10.8)
[2018-03-14] MEDS: CEFAZOLIN SODIUM 1 GM VIAL IVP SCH ×3 (05:32→20:57)
[2018-03-14 05:34] LABS: CREATININE 0.6 mg/dL (0.5-1.5); POTASSIUM 3.8 mmol/L (3.5-5.1)
[2018-03-14] MEDS: PANTOPRAZOLE SODIUM 40 MG TABLET.DR PO SCH (06:42)
[2018-03-14 08:00] VITALS: BP 111/66
[2018-03-14] MEDS: FUROSEMIDE 10 MG/ML 2ML VIAL IV SCH ×2 (10:54→20:57)
[2018-03-14] MEDS: DRONABINOL 2.5 MG CAP PO SCH ×2 (10:54→20:57)
[2018-03-14] MEDS: TAMSULOSIN HCL 0.4 MG CAP.ER.24H PO SCH (10:54)
[2018-03-14] MEDS: ASCORBIC ACID 500 MG TAB PO SCH (10:55)
[2018-03-14 12:00] VITALS: BP 106/65
[2018-03-14 17:13] VITALS: BP 107/63
[2018-03-14 19:00] VITALS: BP 98/58
[2018-03-14] MEDS: FAMOTIDINE 20MG TAB 20 MG TAB PO SCH (20:57)
[2018-03-14 23:00] VITALS: BP 97/63
[2018-03-15 03:00] VITALS: BP 99/62
[2018-03-15] MEDS: CEFAZOLIN SODIUM 1 GM VIAL IVP SCH ×3 (05:05→21:25)
[2018-03-15 06:18] LABS: MEAN CORPUSCULAR HEMOGLOBIN 31.6 pg (27.0-33.0); MEAN CORPUSCULAR HGB CONC 33.7 g/dL (32.0-36.0); MEAN CORPUSCULAR VOLUME 93.6 fL (79-99); PLATELET COUNT (AUTO) 104 K/uL (130-400); RED BLOOD CELL COUNT(AUTO) 3.32 MIL/uL (4.50-6.20); RED CELL DISTRIBUTION WIDTH 17.6 % (11.0-15.5); WHITE BLOOD COUNT (AUTO) 6.3 K/uL (4.8-10.8)
[2018-03-15] MEDS: PANTOPRAZOLE SODIUM 40 MG TABLET.DR PO SCH (06:23)
[2018-03-15 06:31] LABS: CREATININE 0.6 mg/dL (0.5-1.5)
[2018-03-15] MEDS: POTASSIUM CHLORIDE 20 MEQ ERTAB PO PRN ×2 (06:37→09:31)
[2018-03-15 07:00] VITALS: BP 110/73
[2018-03-15] MEDS: FUROSEMIDE 10 MG/ML 2ML VIAL IV SCH ×2 (09:30→21:25)
[2018-03-15] MEDS: TAMSULOSIN HCL 0.4 MG CAP.ER.24H PO SCH (09:31)
[2018-03-15] MEDS: DRONABINOL 2.5 MG CAP PO SCH ×2 (09:31→21:25)
[2018-03-15] MEDS: FAMOTIDINE 20MG TAB 20 MG TAB PO SCH ×2 (09:31→21:25)
[2018-03-15] MEDS: ASCORBIC ACID 500 MG TAB PO SCH (09:31)
[2018-03-15 11:00] VITALS: BP 101/64
[2018-03-15 16:00] VITALS: BP 120/68
[2018-03-15 19:00] VITALS: BP 112/69
[2018-03-15] MEDS: HYDROCODONE/ACETAMINOPHEN 5/325 MG TAB PO PRN (19:38)
[2018-03-15 23:00] VITALS: BP 115/66
[2018-03-16 03:00] VITALS: BP 115/70
[2018-03-16 05:46] LABS: MEAN CORPUSCULAR HEMOGLOBIN 30.7 pg (27.0-33.0); MEAN CORPUSCULAR HGB CONC 32.5 g/dL (32.0-36.0); MEAN CORPUSCULAR VOLUME 94.2 fL (79-99); NUCLEATED RED BLOOD CELLS 0.2 % (0.0-0.19); PLATELET COUNT (AUTO) 103 K/uL (130-400); RED BLOOD CELL COUNT(AUTO) 3.61 MIL/uL (4.50-6.20); RED CELL DISTRIBUTION WIDTH 18.3 % (11.0-15.5); WHITE BLOOD COUNT (AUTO) 6.6 K/uL (4.8-10.8)
[2018-03-16 06:04] LABS: ALBUMIN 1.6 g/dL (3.5-5.0); BILIRUBIN,DIRECT 0.7 mg/dL (0.0-0.3); CREATININE 0.7 mg/dL (0.5-1.5); POTASSIUM 3.7 mmol/L (3.5-5.1); TOTAL PROTEIN, SERUM 5.3 g/dL (6.0-8.3)
[2018-03-16] MEDS: PANTOPRAZOLE SODIUM 40 MG TABLET.DR PO SCH (06:48)
[2018-03-16 07:00] VITALS: BP 102/56
[2018-03-16] MEDS: FAMOTIDINE 20MG TAB 20 MG TAB PO SCH ×2 (09:00→20:55)
[2018-03-16] MEDS: FUROSEMIDE 10 MG/ML 2ML VIAL IV SCH ×2 (09:01→20:55)
[2018-03-16] MEDS: ASCORBIC ACID 500 MG TAB PO SCH (09:02)
[2018-03-16] MEDS: DRONABINOL 2.5 MG CAP PO SCH ×2 (09:02→20:55)
[2018-03-16] MEDS: POTASSIUM CHLORIDE 20 MEQ ERTAB PO SCH (09:02)
[2018-03-16] MEDS: TAMSULOSIN HCL 0.4 MG CAP.ER.24H PO SCH (09:02)
[2018-03-16 11:00] VITALS: BP 103/64
[2018-03-16 16:00] VITALS: BP 107/57
[2018-03-16 19:00] VITALS: BP 102/60
[2018-03-17] VITALS: BP 100/64
[2018-03-17 04:00] VITALS: BP 103/65
[2018-03-17 05:43] LABS: HEMATOCRIT 33.6 % (42-54); MEAN CORPUSCULAR HGB CONC 33.9 g/dL (32.0-36.0); MEAN CORPUSCULAR VOLUME 94.2 fL (79-99); PLATELET COUNT (AUTO) 133 K/uL (130-400); RED BLOOD CELL COUNT(AUTO) 3.57 MIL/uL (4.50-6.20); RED CELL DISTRIBUTION WIDTH 18.5 % (11.0-15.5); WHITE BLOOD COUNT (AUTO) 8.5 K/uL (4.8-10.8)
[2018-03-17 05:54] LABS: CREATININE 0.7 mg/dL (0.5-1.5); POTASSIUM 3.8 mmol/L (3.5-5.1)
[2018-03-17] MEDS: PANTOPRAZOLE SODIUM 40 MG TABLET.DR PO SCH (06:54)
[2018-03-17 07:00] VITALS: BP 106/64
[2018-03-17] MEDS: TAMSULOSIN HCL 0.4 MG CAP.ER.24H PO SCH (09:30)
[2018-03-17] MEDS: FUROSEMIDE 10 MG/ML 2ML VIAL IV SCH ×2 (09:31→21:46)
[2018-03-17] MEDS: POTASSIUM CHLORIDE 20 MEQ ERTAB PO SCH (09:31)
[2018-03-17] MEDS: DRONABINOL 2.5 MG CAP PO SCH ×2 (09:31→21:46)
[2018-03-17] MEDS: ASCORBIC ACID 500 MG TAB PO SCH (09:31)
[2018-03-17] MEDS: FAMOTIDINE 20MG TAB 20 MG TAB PO SCH ×2 (09:31→21:46)
[2018-03-17 11:00] VITALS: BP 112/81
[2018-03-17] MEDS ORDERED: LACTULOSE 20 GM/30 ML UDCUP PO PRN (13:30)
[2018-03-17 16:00] VITALS: BP 123/74
[2018-03-17 20:00] VITALS: BP 96/57
[2018-03-18] VITALS: BP 91/56
[2018-03-18 04:00] VITALS: BP 103/55
[2018-03-18] MEDS: PANTOPRAZOLE SODIUM 40 MG TABLET.DR PO SCH (05:52)
[2018-03-18 08:00] VITALS: BP 108/71
[2018-03-18] MEDS: DRONABINOL 2.5 MG CAP PO SCH ×2 (08:14→18:11)
[2018-03-18] MEDS: TAMSULOSIN HCL 0.4 MG CAP.ER.24H PO SCH (08:14)
[2018-03-18] MEDS: FAMOTIDINE 20MG TAB 20 MG TAB PO SCH (08:14)
[2018-03-18] MEDS: ASCORBIC ACID 500 MG TAB PO SCH (08:14)
[2018-03-18] MEDS: POTASSIUM CHLORIDE 20 MEQ ERTAB PO SCH (08:15)
[2018-03-18] MEDS: FUROSEMIDE 10 MG/ML 2ML VIAL IV SCH (08:15)
[2018-03-18 12:00] VITALS: BP 103/66
[2018-03-18] MEDS ORDERED: CEFTRIAXONE SODIUM 1 GM IVP SCH (14:00)
[2018-03-18] MEDS ORDERED: METRONIDAZOLE 500 MG TABLET PO SCH (14:15)
[2018-03-18 16:00] VITALS: BP 102/64
[2018-03-18] MEDS: HYDROCODONE/ACETAMINOPHEN 5/325 MG TAB PO PRN (18:13)
[2018-03-18] MEDS ORDERED: CEFAZOLIN SODIUM 1 GM VIAL IVP SCH (22:00)
== END 2018-03-18 18:40 | disposition home or self-care (01) | DRG 871 ==
LOC: EDH 01:36 → EDHIP 01:37 → 2DH 07:44 → 3AH 03-07 09:50
PROVIDERS: ADMIT Internal Medicine; ATTEND Internal Medicine
PROC: 0F9030Z Drainage of Liver with Drainage Device, Percutaneous Approach (ICD-10-PCS; principal; 2018-03-02)
PROC: 0FJB8ZZ Inspection of Hepatobiliary Duct, Via Natural or Artificial Opening Endoscopic (ICD-10-PCS; 2018-03-03)
DX: A41.9 Sepsis, unspecified organism (principal); E43 Unspecified severe protein-calorie malnutrition; K65.1 Peritoneal abscess; K75.0 Abscess of liver; N39.0 Urinary tract infection, site not specified; J90 Pleural effusion, not elsewhere classified; B96.89 Other specified bacterial agents as the cause of diseases classified elsewhere; D50.9 Iron deficiency anemia, unspecified; E78.5 Hyperlipidemia, unspecified; R53.81 Other malaise; B96.20 Unspecified Escherichia coli [E. coli] as the cause of diseases classified elsewhere; I10 Essential (primary) hypertension; E87.6 Hypokalemia; Z90.49 Acquired absence of other specified parts of digestive tract; Z68.23 Body mass index [BMI] 23.0-23.9, adult
CPT/HCPCS: 10030; 36415; 43235; 71045; 74160; 74177; 74330; 75989; 76705; 77012; 78227; 80048; 80053; 80202; 81001; 82150; 82247; 82248; 82550; 82948; 83540; 83550; 83605; 83690; 83735; 83874; 84100; 84132; 84443; 84484; 85025; 85027; 85610; 85730; 86140; 86850; 86900; 86901; 86922; 87040; 87071; 87076; 87077; 87088; 87186; 87205; 89051; 93005; 97039; A4218; A9537; C1769; C1894; C9113; J0690; J1610; J1644; J1650; J1756; J1940; J2250; J2543; J2704; J3010; J3370; J3475; J3480; J3490; J7030; J7120; P9047; Q0161; Q0167; Q9967